=== PATIENT | male | born 1955 | race Two or more races ===

== ENCOUNTER 2025-05-18 16:05 | Inpatient (IN) | payer OTHER ==
[~2025-05-18] VITALS: Ht 162.6 cm; Wt 85.0 kg
--- NOTE | 2025-05-18 16:37 | ED.PDOC ---
SOB-HPI HPI Comments 69 year old male presents to the ED with a chief complaint of shortness of breath onset 1 week. Patient states he has been experiencing shortness of breath for the past week as well as bilateral feet swelling. PMHx COPD, HTN. Denies chest pain, dizziness, fever, chills, numbness/tingling, weakness. No other symptoms or modifying factors present at this time. Chief Complaint: Shortness of Breath Time Seen by MD: 16:25 Reviewed notes: Medications, Allergies Information Source: Patient Mode of Arrival: Ambulatory Severity: Moderate Timing: Months Duration: Since onset Context: At Rest PE Risk Factors: None History of: COPD Prehospital treatment: None Modifying Factors: Nothing Associated Signs and Symptoms: Leg Swelling Past Medical History PAST MEDICAL HISTORY: COPD, HTN Surgical History: Denies all surgeries Family History Family History: Reviewed,noncontributory to illness, No family hx of Cancer, No family hx of DM, No family hx of Heart lonny, No family hx of HTN, No family hx ofKidney lonny, No family hx of Liver lonny, No family hx of Lung lonny, No family hx of Stroke Social History Smoker: Non-Smoker Alcohol: Denies ETOH Use Drugs: Denies Drug Use Lives In: Home Constitutional: denies: chills, diaphoresis, fatigue, fever, malaise, sweats, weakness, others EENTM: denies: blurred vision, double vision, ear bleeding, ear discharge, ear drainage, ear pain, ear ringing, eye pain, eye redness, hearing loss, mouth pain, mouth swelling, nasal discharge, nose bleeding, nose congestion, nose pain, photophobia, tearing, throat pain, throat swelling, voice changes, others Respiratory: reports: shortness of breath; denies: cough, hemoptysis, orthopnea, SOB at rest, SOB with excertion, stridor, wheezing, others Cardiovascular: denies: chest pain, dizzy spells, diaphoresis, Dyspnea on exertion, edema, irregular heart beat, left arm pain, lightheadedness, palpitations, PND, syncope, others Gastrointestinal: denies: abdomen distended, abdominal pain, blood streaked bowels, constipated, diarrhea, dysphagia, difficulty swallowing, hematemesis, melena, nausea, poor appetite, poor fluid intake, rectal bleeding, rectal pain, vomiting, others Genitourinary: denies: burning, dysuria, flank pain, frequency, hematuria, incontinence, penile discharge, penile sore, pain, testicle pain, testicle swelling, urgency, others Neurological: denies: dizziness, fainting, headache, left sided numbness, left sided weakness, numbness, paresthesia, pre-existing deficit, right sided numbnes s, right sided weakness, seizure, speech problems, tingling, tremors, weakness, others Musculoskeletal: reports: others (bilateral feet swelling); denies: back pain, gout, joint pain, joint swelling, muscle pain, muscle stiffness, neck pain Integumetry: denies: bruises, change in color, change in hair/nails, dryness, laceration, lesions, lumps, rash, wounds, others Allergic/Immunocompromised: denies: Difficulty Healing, Frequent Infections, Hives, Itching, others Hematologic/Lymphatic: denies: anemia, blood clots, easy bleeding, easy bruising, swollen glands, others Endocrine: denies: excessive hunger, excessive sweating, excessive thirst, excessive urination, flushing, intolerance to cold, intolerance to heat, unexplained weight gain, unexplained weight loss, others Psychiatric: denies: anxiety, bipolar disorder, depression, hopeless, panic disorder, schizophrenia, sleepless, suicidal, others All Other Systems: Reviewed and Negative Physical Exam General Appearance: Moderate Distress, Normal HEENT: Normal ENT Inspection, Pharynx Normal, TMs Normal Neck: Full Range of Motion, Non-Tender, Normal, Normal Inspection Respiratory: Accessory Muscle Use, Chest Non-Tender, Respiratory Distress, Other (Coarse breath sounds) Cardiovascular: No Edema, No JVD, No Murmur, No Gallop, Normal Peripheral Pulses, Regular Rate/Rhythm Breast Exam: Deferred Gastrointestinal: No Organomegaly, Non Tender, No Pulsatile Mass, Normal Bowel Sounds, Soft Genitalia: Deferred Pelvic: Deferred Rectal: Deferred Extremities: No calf tenderness, Normal capillary refill, Non-tender, No pedal edema, Swelling (Bilateral lower extremity) Musculoskeletal : Apperance: Normal Neurologic: Alert, refund specialist II-XII nml as Tested, No Motor Deficits, Normal Affect, Normal Mood, No Sensory Deficits Cerebellar Function: NOT DONE Reflexes: NOT DONE Skin: Dry, Normal Color, Warm Peripheral Pulses: 3+ Radial (R), 3+ Radial (L) Lymphatic: No Adenopathy Was a procedure done? Was a procedure done?: No Differential Dx Differential Diagnosis: Anxiety, Asthma, Bronchitis, CHF, COPD X-Ray, Labs, Meds, VS Vital Signs Date Time Temp Pulse Resp B/P (MAP) Pulse Ox O2 Delivery O2 Flow Rate FiO2 05/18/25 16:11 96 05/18/25 16:10 97.6 95 20 150/95 98 97.6 Patient alert. Complaining of shortness a breath. Bilateral lower extremity swelling. Vitals stable. Was given Lasix. Was given steroid. He continues to smoke cigarettes. Counseled patient on effects of smoking cigarettes for 15 minutes. Explained to the patient. Continue monitoring. Time of 1ST Reevaluation: 16:55 Reevaluation 1ST: Unchanged Patient Education/Counseling: Diagnosis, Treatment, Prognosis Family Education/Counseling: Diagnosis, Treatment, Prognosis SEPSIS Sepsis Screen Date sepsis recognized/suspect: May 18, 2025 Time Sepsis recognized/suspect: 1610 Recent Procedure: No On Antibiotic Therapy: No Respiratory Rate >20: No Heart Rate >90: Yes Temp<36 C (96.8 F) or >38.3 C: No SBP <90 or MAP <65 mmHG: No New Acute Mental Status Change: No Is the patient on CPAP, BIPAP,: No Physician Orders Troponin-I Hs (05/18/25 16:29) Complete Blood Count (05/18/25 16:29) Comprehensive Metabolic Panel (05/18/25 16:29) B-Type Natriuretic Peptide (05/18/25 16:29) Chest Portable (05/18/25 16:29) Urinalysis (05/18/25 16:29) Troponin-I Hs (05/18/25 17:29) Troponin-I Hs (05/18/25 19:29) Electrocardigram (05/18/25 16:30) Magnesium Sulfate 1gm/100ml (05/18/25 16:30) Vital Signs Date Time Temp Pulse Resp B/P (MAP) Pulse Ox O2 Delivery O2 Flow Rate FiO2 05/18/25 16:11 96 05/18/25 16:10 97.6 95 20 150/95 98 97.6 Departure 1 Departure Time of Disposition: 16:40 Impression: Primary Impression: CHF (congestive heart failure) Qualified Codes: I50.43 - Acute on chronic combined systolic (congestive) and diastolic (congestive) heart failure Disposition: ADMITTED INPATIENT Admit to: Med Surg Condition: Guarded Critical Care Note Critical Care Time?: Yes (90 min-critical care time only) Stability Stability form required: No Heart Score Heart Score: Heart Score Response (Comments) Value History Slightly Suspicious 0 EKG Normal 0 Age >65 2 Risk Factors >3 or Hx ASHD 2 Troponin Normal limit 0 Total 4 I personally scribed for KATHARINE LOZA MD ([email or web address]) on 05/18/25 at 16:37. Electronically submitted by Lisa Saldana ([email or web address]). KATHARINE LOZA MD May 18, 2025 16:37
[2025-05-18] MEDS: IPRATROPIUM BROM 0.5 MG/2.5ML INH SOL NEB ONE (16:44)
[2025-05-18] MEDS: ALBUTEROL SULF 2.5 MG/0.5ML(0.5%) NEB SOLN NEB ONE (16:44)
[2025-05-18] MEDS: methylPREDNISolone SOD SUCC 125 MG/2 ML VL IV ONE (17:10)
[2025-05-18] MEDS: FUROSEMIDE 40 MG/4 ML VIAL IV ONE (17:10)
[2025-05-18 17:14] LABS: Hematocrit 46.4 % (41.0-53.0); Hemoglobin 15.6 g/dL (13.5-17.5); Mean Corpuscular Hemoglobin 31.4 pg (28.0-32.0); Mean Corpuscular Volume 93.7 fL (80.0-100.0); Nucleated Red Blood Cells % 0.1 %
[2025-05-18] MEDS: MAGNESIUM SULFATE 1GM/100ML 100 ML IV ONE (17:15)
[2025-05-18 17:38] LABS: Alanine Aminotransferase 24 U/L (7-40); Albumin 3.9 g/dL (3.2-4.8); Alkaline Phosphatase 128 U/L (46-116); Anion Gap 6 (5-15); BUN/Creatinine Ratio 12.4 (10.0-20.0); Bilirubin, Total 1.4 mg/dL (0.2-1.0); Blood Urea Nitrogen 15 mg/dL (9-23); Calcium 8.6 mg/dL (8.7-10.4); Carbon Dioxide 32 mmol/L (20-31); Chloride 98 mmol/L (98-107); Glucose 105 mg/dL (74-106); Potassium 4.4 mmol/L (3.5-5.1); Sodium 136 mmol/L (136-145); Total Protein 7.1 g/dL (5.7-8.2)
--- NOTE | 2025-05-18 17:58 | DVH ---
CHEST RADIOGRAPH REASON FOR EXAM: Shortness of breath COMPARISON: None TECHNIQUE: One view of the chest is provided FINDINGS: The cardiomediastinal silhouette is enlarged. There is diffuse interstitial prominence and confluence airspace disease at the lung bases. There is small right pleural effusion. There is no pn eumothorax. No acute osseous abnormality is identified. IMPRESSION: Cardiomegaly. Pulmonary edema. Small right pleural effusion.
[2025-05-18] MEDS ORDERED: NITROGLYCERIN 0.4 MG SL TAB SL PRN (19:45)
[2025-05-18] MEDS ORDERED: MORPHINE SULFATE INJ 2 MG/ml SYRG IV PRN (19:45)
[2025-05-18] MEDS ORDERED: ONDANSETRON HCL 4 MG/2 ML VIAL IV PRN (19:45)
[2025-05-18] MEDS ORDERED: ACETAMINOPHEN 325 MG TAB PO PRN (19:45)
[2025-05-18 20:01] VITALS: BP 127/82; PULSE 92; RESP 22; TEMP 97.6; O2SAT 95
[2025-05-18 20:07] LABS: Urine Protein, UAD Negative (Negative)
[2025-05-18 20:45] VITALS: PULSE 90; RESP 25; O2SAT 93
--- NOTE | 2025-05-18 21:47 | DVHHP2 ---
History of Present Illness Reason for Visit: Shortness for breath History of Present Illness 69-year-old male presents for evaluation of shortness for breath. Patient endorses a one-week history of worsening shortness for breath with associated chest pressure and bilateral lower extremity swelling. Denies history of congestive heart failure. Denies cough or fever. No other acute complaints reported. Past Medical History Hypertension COPD Past Surgical History Denies Family History Noncontributory Smoke: No ALCOHOL: none Drugs: None Review of Systems Review of Systems Review of systems are currently negative otherwise addressed in HPI. Allergies: Coded Allergies: NO KNOWN ALLERGIES (Unverified , 05/18/25) Medications Current Medications Medications Dose Ordered Sig/Zahra Route Start Time Stop Time Status Last Admin Dose Admin Furosemide 40 mg DAILY IV 05/19/25 10:00 Aspirin 81 mg DAILY PO 05/19/25 10:00 Atorvastatin Calcium 10 mg HS PO 05/18/25 22:00 Albuterol 2.5 mg Q6HPRN PRN NEB 05/18/25 19:45 Ondansetron HCl 4 mg Q4HP PRN IV 05/18/25 19:45 Acetaminophen 650 mg Q6HP PRN PO 05/18/25 19:45 Nitroglycerin 0.4 mg Q5MINP PRN SL 05/18/25 19:45 Morphine Sulfate 2 mg Q30M PRN IV 05/18/25 19:45 Exam Vital Signs Vital Signs Date Time Temp Pulse Resp B/P (MAP) Pulse Ox O2 Delivery O2 Flow Rate FiO2 05/18/25 20:45 90 25 93 Nasal Cannula* 2 28 05/18/25 20:01 97.6 127/82 97.6 Exam Gen: 69-year-old male in mild distress Skin: Warm, dry, normal color and texture, no rash. HEENT: Normocephalic atraumatic, mucous membranes moist and pink. Neck: Cervical and supraclavicular nodes normal without enlargement, trachea is midline, thyroid gland is normal without masses. Pulmonary: Clear to auscultation and percussion bilaterally. Cardiac: Regular rate and rhythm. No murmur Abdomen: Soft, nontender, nondistended, bowel sounds present all 4 quadrants, no guarding, no rigidity, no organomegaly. Extremities: No cyanosis, clubbing, plus one bilateral lower extremity edema Neuro: Cranial nerves II through XII grossly intact, normal affect and speech, no focal motor deficits. Labs/Xrays Labs Test 05/18/25 19:36 05/18/25 19:20 05/18/25 16:55 Range/Units Troponin I High Sensitivity 42 </=54 ng/L Urine Color Light-yellow Yellow Urine Clarity Clear Clear Urine pH 5.0 5.0-9.0 Urine Specific [place] 1.006 1.001-1.035 Urine Protein Negative Negative Urine Ketones Negative Negative Urine Blood Negative Negative /uL Urine Nitrite Negative Negative Urine Bilirubin Negative Negative Urine Urobilinogen Normal Negative mg/dL Urine Leukocyte Esterase Negative Negative /uL Urine RBC 1 0 - 3 /hpf Urine Microscopic WBC < 1 0-3 /HPF Urine Squamous Epithelial Cells None seen <5 /hpf Urine Bacteria None seen None Seen /hpf Urine Glucose Normal Normal mg/dL White Blood Count 8.9 4.4-10.8 10^3/uL Red Blood Count 4.96 4.5-5.90 10^6/uL Hemoglobin 15.6 13.5-17.5 g/dL Hematocrit 46.4 41.0-53.0 % Mean Corpuscular Volume 93.7 80.0-100.0 fL Mean Corpuscular Hemoglobin 31.4 28.0-32.0 pg Mean Corpuscular Hemoglobin Concent 33.5 32.0-36.0 g/dL Red Cell Distribution Width 15.0 H 11.8-14.3 % Platelet Count 176 140-450 10^3/uL Mean Platelet Volume 8.5 6.9-10.8 fL Neutrophils (%) (Auto) 82.5 H 37.0-80.0 % Lymphocytes (%) (Auto) 7.1 L 10.0-50.0 % Monocytes (%) (Auto) 9.5 0.0-12.0 % Eosinophils (%) (Auto) 0.6 0.0-7.0 % Basophils (%) (Auto) 0.3 0.0-2.0 % Neutrophils # (Auto) 7.3 1.6-8.6 10 ^3/uL Lymphocytes # (Auto) 0.6 0.4-5.4 10 ^3/uL Monocytes # (Auto) 0.8 0-1.3 10 ^3/uL Eosinophils # (Auto) 0.1 0-0.8 10 ^3/uL Basophils # (Auto) 0 0-0.2 10 ^3/uL Nucleated Red Blood Cells 0.1 % D-Dimer, Quantitative 1.27 H 0.0-0.49 mg/L FEU Sodium Level 136 136-145 mmol/L Potassium Level 4.4 3.5-5.1 mmol/L Chloride Level 98 98-107 mmol/L Carbon Dioxide Level 32 H 20-31 mmol/L Anion Gap 6 5-15 Blood Urea Nitrogen 15 9-23 mg/dL Creatinine 1.21 0.700-1.30 mg/dL Glomerular Filtration Rate Calc 65 >90 mL/min BUN/Creatinine Ratio 12.4 10.0-20.0 Serum Glucose 105 74-106 mg/dL Calcium Level 8.6 L 8.7-10.4 mg/dL Total Bilirubin 1.4 H 0.2-1.0 mg/dL Aspartate Amino Transferase (AST) 33 13-40 U/L Alanine Aminotransferase (ALT) 24 7-40 U/L Alkaline Phosphatase 128 H 46-116 U/L B-Type Natriuretic Peptide 1236.54 0-100 pg/mL Total Protein 7.1 5.7-8.2 g/dL Albumin 3.9 3.2-4.8 g/dL SEPSIS Sepsis Screen Date sepsis recognized/suspect: May 18, 2025 Time Sepsis recognized/suspect: 1849 Recent Procedure: No On Antibiotic Therapy: No Respiratory Rate >20: Yes Heart Rate >90: No Temp<36 C (96.8 F) or >38.3 C: No SBP <90 or MAP <65 mmHG: No New Acute Mental Status Change: No Is the patient on CPAP, BIPAP,: No Physician Orders Chest Portable (05/18/25 16:29) Electrocardigram (05/18/25 16:30) Furosemide Injection (Lasix Injection) (05/19/25 10:00) Aspirin Tablet (05/19/25 10:00) Atorvastatin (Lipitor) (05/18/25 22:00) Albuterol Medneb (Ventolin Medneb) (05/18/25 19:45) Basic Metabolic Panel (05/19/25 04:00) Cardiac Diet-2gna,Lofat,Lochol (05/19/25 Breakfast) Echo 2d Mode Cardiac Dop (05/18/25 19:41) Condition: Stable (05/18/25 19:41) Acetaminophen Tablet (Tylenol Tablet) (05/18/25 19:45) Bedrest With Bathroom Privileg (05/18/25 19:41) Nitroglycerin Sublingual (Ntrostat Subli (05/18/25 19:45) Morphine Sulfate Injection (05/18/25 19:45) Stat Ekg For Chest Pain (05/18/25 19:41) Notify Md Of Changes From Base (05/18/25 19:41) Director Search Marketing Strategies For 24 Hours (05/18/25 19:41) Emergency Dysrhythmia Protocol (05/18/25 19:41) Rhythm Strips Once Every Shift (05/18/25 19:41) Oxygen By Nasal Cannula (05/18/25 19:41) Admit (05/18/25 19:41) Ondansetron Hcl (Zofran) (05/18/25 19:45) Ct Angio Chest Contrast (05/18/25 21:43) Vital Signs Date Time Temp Pulse Resp B/P (MAP) Pulse Ox O2 Delivery O2 Flow Rate FiO2 05/18/25 20:45 90 25 93 Nasal Cannula* 2 28 05/18/25 20:01 95 2.0 05/18/25 20:01 95 Nasal Cannula* 2 28 05/18/25 20:01 97.6 92 22 127/82 95 2.0 28 97.6 05/18/25 19:35 92 22 127/82 (97) 92 05/18/25 18:44 Nasal Cannula* 2 28 05/18/25 17:10 135/86 05/18/25 16:45 99 22 112/56 (74) 99 05/18/25 16:44 18 98 Nasal Cannula* 3 32 05/18/25 16:11 96 05/18/25 16:10 97.6 95 20 150/95 98 97.6 Laboratory Tests Test 05/18/25 16:55 White Blood Count 8.9 10^3/uL (4.4-10.8) Medications Medications Dose Ordered Sig/Zahra Route Start Time Stop Time Status Last Admin Dose Admin Albuterol 5 mg ONCE ONCE NEB 05/18/25 16:30 05/18/25 16:31 DC 05/18/25 16:44 5 MG Furosemide 40 mg ONCE ONCE IV 05/18/25 16:30 05/18/25 16:31 DC 05/18/25 17:10 40 MG Ipratropium [place] 0.5 mg ONCE ONCE NEB 05/18/25 16:30 05/18/25 16:31 DC 05/18/25 16:44 0.5 MG Magnesium Sulfate/ Dextrose 100 ml @ 100 mls/hr ONCE ONCE IV 05/18/25 16:30 05/18/25 17:29 DC 05/18/25 17:15 100 MLS/HR Methylprednisolone Sodium Succinate 125 mg ONCE ONCE IV 05/18/25 16:30 05/18/25 16:31 DC 05/18/25 17:10 125 MG Assessment/Plan Assessment/Plan Assessment Acute heart failure Hypertension COPD Elevated D-dimer Plan Admit the patient to telemetry to the hospitalist Echocardiogram pending Resume home medications IV Lasix Continue treatment per orders. Plan discussed with: Patient My Orders Orders - TRISTEN MCCONNELL AGACNP Procedure Category Date Status Time Furosemide Injection PHA 05/19/25 In Process (Lasix Injection) 10:00 Aspirin Tablet PHA 05/19/25 In Process 10:00 Atorvastatin (Lipitor) PHA 05/18/25 In Process 22:00 Albuterol Medneb PHA 05/18/25 In Process (Ventolin Medneb) 19:45 Basic Metabolic Panel LAB 05/19/25 Verified 04:00 Cardiac DIET 05/19/25 Transmitted Diet-2gna,Lofat,Lochol Breakfast Echo 2d Mode Cardiac US 05/18/25 Logged DOP 19:41 Condition: Stable [place] 05/18/25 In Process 19:41 Acetaminophen Tablet PHA 05/18/25 In Process (Tylenol Tablet) 19:45 Bedrest With Bathroom [place] 05/18/25 In Process Privileg 19:41 Nitroglycerin PHA 05/18/25 In Process Sublingual (Ntrostat 19:45 Morphine Sulfate PHA 05/18/25 In Process Injection 19:45 Stat Ekg For Chest [facility] 05/18/25 In Process Pain 19:41 Notify Of Changes [facility] 05/18/25 In Process From Base 19:41 Director Search Marketing Strategies For [facility] 05/18/25 In Process 24 Hours 19:41 Emergency Dysrhythmia [facility] 05/18/25 In Process Protocol 19:41 Rhythm Strips Once [facility] 05/18/25 In Process Every Shift 19:41 Oxygen By Nasal RT 05/18/25 Transmitted Cannula 19:41 Admit ADMIT 05/18/25 Verified 19:41 Ondansetron Hcl PHA 05/18/25 In Process (Zofran) 19:[address] 05/18/25 Transmitted Contrast 21:43 Date of Service: May 18, 2025 Billing Provider: TRISTEN MCCONNELL Common Visit Codes: [id number] INP/OBS CARE (HIGH) TRISTEN MCCONNELL May 18, 2025 21:47
[2025-05-18 21:59] VITALS: BP 119/84; PULSE 65; PULSE 94; RESP 19; TEMP 97.4; O2SAT 92
[2025-05-18] MEDS: ATORVASTATIN 20 MG TAB PO SCH (22:07)
[2025-05-18 23:00] VITALS: BP 119/84; PULSE 94; RESP 19; TEMP 97.4; O2SAT 92
[2025-05-19] VITALS (12 sets, daily range): BP systolic 120–156; BP diastolic 78–95; PULSE 74–102; RESP 16–26; TEMP 97.1–98.5; O2SAT 89–100
--- NOTE | 2025-05-19 02:00 | DVH ---
CTA Chest with intravenous contrast INDICATION: r/o pe COMPARISON: None TECHNIQUE: Multidetector spiral CTA of the chest was performed of the chest with intravenous contrast . PULMONARY ANGIOGRAPHY PROTOCOL was utilized using a bolus-tracking technique centered on the main p ulmonary artery. Axial, coronal and sagittal multiplanar and MIP reformats were performed. Radiation Dose : 1. Chest: CTDI volume is 29.6 mGy. Dose-length product is 801.54 mGy*cm The dose indicators for CT are the volume Computed Tomography (CT) Dose Index (CTDIvol) and the Dose Length Product (DLP), and are measured in units of mGy and mGy-cm, respectively. These indicators are not patient dose, but values generated from the CT scanner acquisition factors. The report includes radiation exposure data for exposures received during this examination. Findings: Pulmonary artery: Nonocclusive filling defect within the distal right main pulmonary artery extending into the lobar br anches of the middle and lower lobes adherent to the bowers having an appearance of probable chronic p ulmonary embolus. Lower neck: Normal thyroid. Lungs: Trace bilateral pleural effusions and diffuse parenchymal architectural changes consistent wit h advanced paraseptal pulmonary emphysema. Moderate bibasilar atelectasis and minor bilateral lower l obe consolidation. Heart/Vascular Structures: Enlarged with small pericardial effusion. Atherosclerotic vascular calcifi cations. Lymph Nodes: No adenopathy Musculoskeletal: No acute osseous abnormality. Soft tissues: Normal. Multiple venous collaterals noted within the bilateral axilla as well as within the upper abdomen. Upper abdomen: Cirrhotic hepatic morphology. IMPRESSION: 1. Nonocclusive filling defect within the distal right main pulmonary artery extending into the lobar branches of the middle and lower lobes adherent to the bowers having an appearance of likely chronic pulmonary embolus. 2. Trace bilateral pleural effusions and diffuse parenchymal architectural changes consistent with ad vanced paraseptal pulmonary emphysema. 3. Moderate bibasilar atelectasis and minor bilateral lower lobe consolidation. 4. Enlarged heart with small pericardial effusion. 5. Multiple venous collaterals noted within the bilateral axilla as well as within the upper abdomen. 6. Cirrhotic hepatic morphology. Critical Result: Pulmonary embolus. Findings discussed with Dr. PEREIRA at 05/19/2025 01:52 AM, and acknowledged receipt and understandin g of the findings.
[2025-05-19 07:25] LABS: Potassium 4.4 mmol/L (3.5-5.1)
[2025-05-19 07:26] LABS: Anion Gap 7 (5-15)
[2025-05-19 07:32] LABS: BUN/Creatinine Ratio 10.4 (10.0-20.0); Blood Urea Nitrogen 12 mg/dL (9-23)
[2025-05-19 07:36] LABS: Calcium 8.1 mg/dL (8.7-10.4); Carbon Dioxide 33 mmol/L (20-31); Chloride 96 mmol/L (98-107); Glucose 152 mg/dL (74-106); Sodium 136 mmol/L (136-145)
[2025-05-19 07:48] LABS: INR 1.24 (0.9-1.15); Partial Thromboplastin Time 30.3 SEC (24.5-34.5); Prothrombin Time 12.9 sec (9.3-11.8)
[2025-05-19] MEDS: ALBUTEROL SULF 2.5 MG/0.5ML(0.5%) NEB SOLN NEB PRN (09:31)
[2025-05-19] MEDS: APIXABAN 5 MG TAB PO SCH (09:52)
[2025-05-19] MEDS: FUROSEMIDE 40 MG/4 ML VIAL IV SCH (09:53)
--- NOTE | 2025-05-19 10:09 | DVH ---
Bilateral lower extremity venous duplex Clinical History: edema Comparison: None Findings: Duplex Doppler evaluation of the deep venous systems of both lower extremities from the common femora l veins to the popliteal veins including color Doppler and spectral/pulsed waveform analysis was perf ormed. RIGHT SIDE: The common femoral vein demonstrates appropriate compressibility and waveform variability. There is compressibility/patency of the great saphenous vein at the proximal thigh. The femoral vein demonstrates appropriate compressibility and waveform variability. The deep femoral vein demonstrates appropriate compressibility and waveform variability. The popliteal vein demonstrates appropriate compressibility and waveform variability. There is normal compressibility at the tibioperoneal trunk. LEFT SIDE: The common femoral vein demonstrates appropriate compressibility and waveform variability. There is compressibility/patency of the great saphenous vein at the proximal thigh. The femoral vein demonstrates appropriate compressibility and waveform variability. The deep femoral vein demonstrates appropriate compressibility and waveform variability. The popliteal vein demonstrates appropriate compressibility and waveform variability. There is normal compressibility at the tibioperoneal trunk. IMPRESSION: No right or left femoropopliteal venous thrombosis. If clinical concern/symptoms persist or worsen, short-interval follow-up study is suggested. END IMPRESSION:
--- NOTE | 2025-05-19 12:32 | DVHPN2 ---
Reviewed: Care Plan, H&P, Labs, Medications, Previous Orders, Radiology Changes from previous H/P or p: No Changes Objective Vitals Vital Signs Date Time Temp Pulse Resp B/P (MAP) Pulse Ox O2 Delivery O2 Flow Rate FiO2 05/19/25 09:53 135/82 05/19/25 09:31 92 Nasal Cannula* 4 36 05/19/25 09:31 91 22 05/19/25 08:39 98.5 98.5 Intake/Output Intake and Output 05/19/25 07:00 Intake Total 300 ml Output Total 650 ml Balance -350 ml Intake Oral 200 ml IV Total 100 ml Output Urine Total 650 ml Medications Current Medications Medications Dose Ordered Sig/Zahra Route Start Time Stop Time Status Last Admin Dose Admin Furosemide 40 mg DAILY IV 05/19/25 10:00 05/19/25 09:53 40 MG Aspirin 81 mg DAILY PO 05/19/25 10:00 05/19/25 09:52 81 MG Atorvastatin Calcium 10 mg HS PO 05/18/25 22:00 05/18/25 22:07 10 MG Albuterol 2.5 mg Q6HPRN PRN NEB 05/18/25 19:45 05/19/25 09:31 2.5 MG Ondansetron HCl 4 mg Q4HP PRN IV 05/18/25 19:45 Acetaminophen 650 mg Q6HP PRN PO 05/18/25 19:45 Nitroglycerin 0.4 mg Q5MINP PRN SL 05/18/25 19:45 Morphine Sulfate 2 mg Q30M PRN IV 05/18/25 19:45 Apixaban 5 mg BID PO 05/19/25 10:00 05/19/25 09:52 5 MG Laboratory Results Laboratory Tests 05/18/25 16:55 05/19/25 06:15 Chemistry Test 05/18/25 16:55 05/19/25 06:15 Albumin 3.9 g/dL (3.2-4.8) Calcium Level 8.6 mg/dL (8.7-10.4) L 8.1 mg/dL (8.7-10.4) L Total Protein 7.1 g/dL (5.7-8.2) Coagulation Test 05/18/25 16:55 05/19/25 06:15 D-Dimer, Quantitative 1.27 mg/L FEU (0.0-0.49) H Prothrombin Time 12.9 sec (9.3-11.8) H Prothrombin Time INR 1.24 (0.9-1.15) H Activated Partial Thromboplast Time 30.3 SEC (24.5-34.5) Cardiac Markers Test 05/18/25 16:55 B-Type Natriuretic Peptide 1236.54 pg/mL (0-100) LFT Test 05/18/25 16:55 Alanine Aminotransferase (ALT) 24 U/L (7-40) Alkaline Phosphatase 128 U/L (46-116) H Aspartate Amino Transferase (AST) 33 U/L (13-40) Total Bilirubin 1.4 mg/dL (0.2-1.0) H Urinalysis Test 05/18/25 19:20 Urine Color Light-yellow (Yellow) Urine Clarity Clear (Clear) Urine pH 5.0 (5.0-9.0) Urine Specific [place] 1.006 (1.001-1.035) Urine Protein Negative (Negative) Urine Ketones Negative (Negative) Urine Blood Negative /uL (Negative) Urine Nitrite Negative (Negative) Urine Bilirubin Negative (Negative) Urine Urobilinogen Normal mg/dL (Negative) Urine Leukocyte Esterase Negative /uL (Negative) Urine RBC 1 /hpf (0 - 3) Urine Microscopic WBC < 1 /HPF (0-3) Urine Squamous Epithelial Cells None seen /hpf (<5) Urine Bacteria None seen /hpf (None Seen) Urine Glucose Normal mg/dL (Normal) Labs and/or images reviewed: Labs reviewed by me, Image(s) reviewed by me Assessment/Plan Assessment/Plan Acute hypoxic respiratory failure: Oxygen by nasal cannula New onset congestive heart failure BNP 1236: Lasix echocardiogram result pending cardiology consult for Dr. Forde Chronic right PE: On Eliquis Bilateral lower lobe pneumonia: Rocephin azithromycin albuterol Atrovent Elevated D-dimer 1.27 DVT ruled out Hypertension Acute COPD exacerbation Time spent 70 minutes Advanced care planning time 20 minutes Patient is full code Plan discussed with: Patient My Orders Orders - SHALONDA BRAGG MD Procedure Category Date Status Time * Cardiology Consult CONS 05/19/25 Transmitted 12:27 Ceftriaxone Ivpb PHA 05/20/25 Verified Rocephin 09:00 Ceftriaxone Ivpb PHA 05/19/25 Verified Rocephin 12:30 Azithromycin 500mg/ PHA 05/20/25 Verified 250ml (Zithromax 50 10:00 Azithromycin 500mg/ PHA 05/19/25 Verified 250ml (Zithromax 50 12:30 Date of Service: May 19, 2025 Billing Provider: SHALONDA BRAGG MD Common Visit Codes: [id number] CARE 30-74 MIN SHALONDA BRAGG MD May 19, 2025 12:32
--- NOTE | 2025-05-19 13:17 | DVHSR ---
APPROVED REPORT EXAM: Two-dimensional and M-mode echocardiogram with Doppler and color Doppler. Blood Pressure: 136/88 mmHg INDICATION EF RISK FACTORS Height: 5'4", Weight: 185 DIMENSIONS LVDd5.3 (3.8-5.7cm)LA (2D)3.9 (1.9-4.0cm)Aortic Root3.4 (2.0-3.7cm) LVDs4.7 (2.5-4.0cm)LA (MM) (1.9-4.0cm)Aortic Cusp Exc1.1 (1.5-2.0cm) EF (%) 27.0 (55-70%)Rt. Atrium6.0 (1.9-4.0cm)Asc. Aorta cm IVSd1.0 (0.7-1.1cm)RV (D) (1.8-2.4cm) PWd0.9 (0.7-1.1cm) Mitral Valve MitralMitral Stenosis E/A ratio0.02D MVAcm2 Aortic Valve Aortic ValveAortic Stenosis V10.54m/Telma Mean GR.3mmHg V21.03m/Telma Peak GR.4mmHg LVOT Diameter2.1 (1.8-2.4cm)Doppler AVA1.81cm2 Other Information Quality : Technically LimitedRhythm : Technically limited study due to body habitus. Conclusion lvef 20 % grade 1 diastolic dysfunction dilated LV moderate LVH RV dysfunction normal atria no severe valve abnormalities noted
[2025-05-19] MEDS: NICOTINE 21MG/24 HR TOPICAL PATCH TD ONE (14:28)
[2025-05-19] MEDS: AZITHROMYCIN 500MG/ 250ML 250 ML IV ONE (14:28)
--- NOTE | 2025-05-19 15:22 | DVHCONRES ---
Date Seen: May 19, 2025 Resident Creating Document: DELFINA RAMÍREZ RESIDENT Referring Physician Jonathan Arreaga MD Reason for Consultation New onset congestive heart failure, chronic right PE History of Present Illness The patient is a 69-year-old male, BMI 31.8, with past history of COPD and hypertension, no prior CHF, who presented with progressive shortness of breath for 1 week and bilateral pedal edema. He remains dyspneic with orthopnea but has shown mild symptomatic improvement with oxygen, diuretics, and initiation of heart failure therapy. Denies chest pain, palpitations, syncope, fever, or dizziness. Todays Progress Update: * Guideline-directed medical therapy (GDMT) initiated for new HFrEF (EF 20%). * Anticoagulation switched from apixaban to therapeutic enoxaparin in anticipation of invasive procedure. * Aspirin 81 mg daily and atorvastatin 40 mg nightly initiated. * Urine drug screen ordered to evaluate for toxic/drug-induced cardiomyopathy. * Left and right heart catheterization scheduled for tomorrow with Dr. Forde for ischemic evaluation and hemodynamic assessment. * Oxygen requirement stable. No chest pain overnight. Past Medical History * COPD * Hypertension * No prior documented CHF * Chronic pulmonary embolism * Cirrhotic hepatic morphology on imaging Past Surgical History * None reported Family History: Patient reports no known family medical history. Social History * Smoking history * No known alcohol/illicit drug use (UDS pending) Allergies: Coded Allergies: NO KNOWN ALLERGIES (Unverified , 05/18/25) Current Medications Current Medications Medications (Trade) Dose Ordered Sig/Zahra Route PRN Reason Start Time Stop Time Status Last Admin Furosemide (Lasix Injection) 40 mg DAILY IV 05/19/25 10:00 05/19/25 09:53 Aspirin 81 mg DAILY PO 05/19/25 10:00 05/19/25 09:52 Atorvastatin Calcium (Lipitor) 10 mg HS PO 05/18/25 22:00 05/18/25 22:07 Albuterol (Ventolin Medneb) 2.5 mg Q6HPRN PRN NEB SHORTNESS OF BREATH 05/18/25 19:45 05/19/25 09:31 Ondansetron HCl (Zofran) 4 mg Q4HP PRN IV NAUSEA / VOMITING 05/18/25 19:45 Acetaminophen (Tylenol Tablet) 650 mg Q6HP PRN PO PAIN SCALE 1-3 OR TEMP>100.4 05/18/25 19:45 Nitroglycerin (Ntrostat Sublingual) 0.4 mg Q5MINP PRN SL FOR CHEST PAIN 05/18/25 19:45 Morphine Sulfate 2 mg Q30M PRN IV FOR CHEST PAIN 05/18/25 19:45 Apixaban (Eliquis) 5 mg BID PO 05/19/25 10:00 05/19/25 09:52 Ceftriaxone Sodium 50 ml @ 100 mls/hr DAILY@09 IV 05/20/25 09:00 Azithromycin 250 ml @ 125 mls/hr DAILY IV 05/20/25 10:00 Nicotine (Nicoderm 21MG/ 24HR) 1 patch DAILY TD 05/20/25 10:00 Review of Systems * General: Fatigue, exertional dyspnea. No fever. * Cardiac: Orthopnea, edema. No chest pain, palpitations. * Respiratory: Dyspnea, mild cough. No hemoptysis. * GI/Neuro: No bleeding, no focal deficits. Vital Signs Vital Signs Date Time Temp Pulse Resp B/P (MAP) Pulse Ox O2 Delivery O2 Flow Rate FiO2 05/19/25 12:47 97.4 74 16 140/95 (110) 98 97.4 05/19/25 09:31 Nasal Cannula* 4 36 Physical Exam * General: Mild distress on O?, speaking in short sentences. * Vitals: HR 92, BP 132/78, RR 22, SpO? 91% on 3L NC, afebrile. * Neck: JVD present. * Cardiac: S3 present, displaced PMI, regular rhythm. * Lungs: Bibasilar crackles, mild wheezing. * Abdomen: Soft, mildly distended. * Extremities: 2+ pedal edema. * Neuro: Alert, oriented. Labs/Diagnostic Data Labs Test 05/19/25 06:15 05/18/25 19:36 05/18/25 19:20 05/18/25 16:55 Range/Units Prothrombin Time 12.9 H 9.3-11.8 sec Prothrombin Time INR 1.24 H 0.9-1.15 Activated Partial Thromboplast Time 30.3 24.5-34.5 SEC Sodium Level 136 136-145 mmol/L Potassium Level 4.4 3.5-5.1 mmol/L Chloride Level 96 L 98-107 mmol/L Carbon Dioxide Level 33 H 20-31 mmol/L Anion Gap 7 5-15 Blood Urea Nitrogen 12 9-23 mg/dL Creatinine 1.15 0.700-1.30 mg/dL Glomerular Filtration Rate Calc 69 >90 mL/min BUN/Creatinine Ratio 10.4 10.0-20.0 Serum Glucose 152 H 74-106 mg/dL Calcium Level 8.1 L 8.7-10.4 mg/dL Troponin I High Sensitivity 42 </=54 ng/L Urine Color Light-yellow Yellow Urine Clarity Clear Clear Urine pH 5.0 5.0-9.0 Urine Specific [place] 1.006 1.001-1.035 Urine Protein Negative Negative Urine Ketones Negative Negative Urine Blood Negative Negative /uL Urine Nitrite Negative Negative Urine Bilirubin Negative Negative Urine Urobilinogen Normal Negative mg/dL Urine Leukocyte Esterase Negative Negative /uL Urine RBC 1 0 - 3 /hpf Urine Microscopic WBC < 1 0-3 /HPF Urine Squamous Epithelial Cells None seen <5 /hpf Urine Bacteria None seen None Seen /hpf Urine Glucose Normal Normal mg/dL White Blood Count 8.9 4.4-10.8 10^3/uL Red Blood Count 4.96 4.5-5.90 10^6/uL Hemoglobin 15.6 13.5-17.5 g/dL Hematocrit 46.4 41.0-53.0 % Mean Corpuscular Volume 93.7 80.0-100.0 fL Mean Corpuscular Hemoglobin 31.4 28.0-32.0 pg Mean Corpuscular Hemoglobin Concent 33.5 32.0-36.0 g/dL Red Cell Distribution Width 15.0 H 11.8-14.3 % Platelet Count 176 140-450 10^3/uL Mean Platelet Volume 8.5 6.9-10.8 fL Neutrophils (%) (Auto) 82.5 H 37.0-80.0 % Lymphocytes (%) (Auto) 7.1 L 10.0-50.0 % Monocytes (%) (Auto) 9.5 0.0-12.0 % Eosinophils (%) (Auto) 0.6 0.0-7.0 % Basophils (%) (Auto) 0.3 0.0-2.0 % Neutrophils # (Auto) 7.3 1.6-8.6 10 ^3/uL Lymphocytes # (Auto) 0.6 0.4-5.4 10 ^3/uL Monocytes # (Auto) 0.8 0-1.3 10 ^3/uL Eosinophils # (Auto) 0.1 0-0.8 10 ^3/uL Basophils # (Auto) 0 0-0.2 10 ^3/uL Nucleated Red Blood Cells 0.1 % D-Dimer, Quantitative 1.27 H 0.0-0.49 mg/L FEU Total Bilirubin 1.4 H 0.2-1.0 mg/dL Aspartate Amino Transferase (AST) 33 13-40 U/L Alanine Aminotransferase (ALT) 24 7-40 U/L Alkaline Phosphatase 128 H 46-116 U/L B-Type Natriuretic Peptide 1236.54 0-100 pg/mL Total Protein 7.1 5.7-8.2 g/dL Albumin 3.9 3.2-4.8 g/dL Assessment 1. Acute decompensated systolic heart failure (HFrEF, EF 20%) new diagnosis. 2. Acute hypoxic respiratory failure multifactorial (CHF, COPD, pneumonia). 3. Chronic pulmonary embolism non-occlusive, adherent to vessel wall. 4. Possible ischemic cardiomyopathy ischemic evaluation scheduled with cath. 5. Stable troponin elevation likely demand ischemia. 6. Community-acquired pneumonia, bilateral upper lobes. 7. Acute COPD exacerbation. 8. Hypertension, uncontrolled. 9. Small pericardial effusion. 10. Obesity (BMI 31.8). 11. Cirrhosis. Plan/Recommendation Treatment Plan Cardiovascular / Heart Failure * Continue furosemide 40 mg IV OD (adjust per urine output and volume status). * Continue GDMT (initiated): * Carvedilol 3.125 mg PO BID (titrate if tolerated). * Eneresto PO daily (monitor Cr/K). * Spironolactone 12.5 mg PO daily (if K<5, Cr<2.5). * Empagliflozin 10 mg PO daily if renal function allows. * Aspirin 81 mg PO daily. * Atorvastatin 40 mg PO nightly. * Strict I/O, daily weights, fluid restriction 1.5 L/day, sodium restriction <2 g/day. * Left and right heart catheterization scheduled for tomorrow with Dr. Forde. * Urine drug screen pending. Anticoagulation * Discontinue apixaban. * Start enoxaparin 1 mg/kg SC BID (therapeutic dosing) hold prior to cath. Pulmonary / Infectious (co-management with IM/ID) * Supplemental O? to keep SpO? 8892%. Prophylaxis * GI: Pantoprazole 40 mg PO daily. * DVT: covered by therapeutic enoxaparin. Case discussed in detail with the attending physician, including the clinical presentation, diagnostic workup, and comprehensive management plan. The patient was present for the discussion and demonstrated understanding of his condition and the proposed plan. Plan discussed with: Patient Visit Coding Cardiology RES Date of Service: May 19, 2025 Billing Provider: JOHNNY FORDE Sr., MD Cardiology Common Codes: [id number] INP/OBS CARE (High) DELFINA RAMÍREZ RESIDENT May 19, 2025 15:22
[2025-05-19] MEDS: ATORVASTATIN 20 MG TAB PO SCH (21:10)
[2025-05-19] MEDS: SACUBITRIL-VALSARTAN 24mg/26mg TAB PO SCH (21:10)
[2025-05-19] MEDS: CARVEDILOL 3.125 MG TAB PO SCH (21:11)
[2025-05-19] MEDS: ENOXAPARIN SOD 100 MG/1 ML SYRINGE SC SCH (21:13)
[2025-05-20] VITALS (16 sets, daily range): BP systolic 87–147; BP diastolic 46–84; PULSE 77–98; RESP 17–26; TEMP 97–98.4; O2SAT 90–100
[2025-05-20] MEDS: AZITHROMYCIN 500MG/ 250ML 250 ML IV SCH (10:11)
[2025-05-20] MEDS: NICOTINE 21MG/24 HR TOPICAL PATCH TD SCH (10:12)
[2025-05-20] MEDS: EMPAGLIFLOZIN 10 MG TAB PO SCH (10:13)
[2025-05-20 10:46] LABS: Hematocrit 45.5 % (41.0-53.0); Hemoglobin 15.3 g/dL (13.5-17.5); Mean Corpuscular Hemoglobin 31.2 pg (28.0-32.0); Mean Corpuscular Volume 93.0 fL (80.0-100.0); Nucleated Red Blood Cells % 0.1 %
[2025-05-20 10:58] LABS: Alanine Aminotransferase 15 U/L (7-40); Alkaline Phosphatase 91 U/L (46-116); Anion Gap 7 (5-15); BUN/Creatinine Ratio 14.0 (10.0-20.0); Bilirubin, Total 0.8 mg/dL (0.2-1.0); Blood Urea Nitrogen 15 mg/dL (9-23); Potassium 3.9 mmol/L (3.5-5.1); Sodium 138 mmol/L (136-145)
[2025-05-20 11:03] LABS: Albumin 2.9 g/dL (3.2-4.8); Calcium 8.0 mg/dL (8.7-10.4); Carbon Dioxide 35 mmol/L (20-31); Chloride 96 mmol/L (98-107); Glucose 122 mg/dL (74-106); Total Protein 5.5 g/dL (5.7-8.2)
[2025-05-20 11:05] LABS: INR 1.23 (0.9-1.15); Partial Thromboplastin Time 31.1 SEC (24.5-34.5); Prothrombin Time 12.8 sec (9.3-11.8)
--- NOTE | 2025-05-20 14:17 | ECG ---
[facility] Test Date: 2025-05-18 Test Time: 16:11:30 Pat Name: NICOLE SCHMIDT Department: [facility] ED Patient ID: [facility]-[id number] Room: 0275T Gender: M Senior Research Associate: alvino : 1955 Requested By: KATHARINE LOZA Order Number: [id number] Reading MD: Orlando Forde Measurements Intervals [place] Rate: 96 P: 65 RI: 161 QRS: -61 QRSD: 83 T: 63 QT: 404 QTc: 511 Interpretive Statements Sinus rhythm Left anterior fascicular block Borderline low voltage, extremity leads Prolonged QT interval Baseline wander in lead(s) V1 Electronically Signed On 05-26-2025 18:53:08 PDT by Orlando Forde Please click the below link to view image of tracing.
[2025-05-20] MEDS: ALBUTEROL SULF 2.5 MG/0.5ML(0.5%) NEB SOLN NEB SCH (18:15)
[2025-05-20] MEDS: IODIXANOL 320MG/ML 100ML BTL IV ONE (18:27)
[2025-05-20] MEDS: fentaNYL CITRATE 100 MCG/2 ML VL ONE (18:29)
[2025-05-20] MEDS: ANGIOMAX 250 MG VIAL IV ONE (18:29)
[2025-05-20] MEDS: VERAPAMIL 2.5MG/ML INJ 2ML VIAL IV ONE (18:29)
[2025-05-20] MEDS: HEPARIN SODIUM (PORCINE) 5000 UNITS/ML 1ML VIAL ONE (18:29)
[2025-05-20] MEDS: LIDOCAINE 2%HCL (LOCAL ANESTH.) INJ 20ML MDV ONE (18:30)
[2025-05-20] MEDS: MIDAZOLAM HCL 2MG/2ML 2ml VIAL (1mg/ml) ONE (18:30)
[2025-05-20] MEDS: SODIUM CHL 0.9% 0 ML ONE (18:30)
--- NOTE | 2025-05-20 19:47 | DVHOP2 ---
Operative Report - 2 Report Details Date: 05/20/25 Preop Diagnosis: Cardiomyopathy/coronary artery disease Postop Diagnosis: Nonischemic cardiomyopathy Surgeon: Johnny Forde MD Anesthesiologist: Conscious sedation Anesthesia: Mac, Local Consent: The patient was informed of the risks and benefits of the procedure. These include but are not limited to complications of anesthesia, postoperative infection, incomplete relief of symptoms, recurrence of symptoms, damage to blood vessels, nerves and tendons, deep venous thrombosis, pulmonary embolism and possible need for repeat surgery in the future. Complications: No complications Findings: Nonischemic cardiomyopathy Indications for Surgery: Chest pain/cardiomyopathy Name of Procedure Performed Left heart catheterization. Bilateral cine coronary angiography. Left ventriculography. Procedure Details Procedure Details: Prior local anesthesia with a 2% lidocaine to the right wrist and full informed consent obtained patient was prepped and draped in the usual fashion followed by placement of a six [place] sheath into the radial artery and a JL4 cannulating the left main. A multipurpose catheter was used to cannulate the RCA and ventriculography without complications. Hemodynamics: Aortic blood pressure was 110/70. End-diastolic pressure was 12. No gradient across the aortic valve on pullback. Coronary anatomy : the RCA is a large vessel it is normal in its proximal mid and distal segments. PDA and posterolateral branches are normal. Left main is a large vessel. It is normal in its proximal portion. There was a slight bend and stenosis 30-40% in its mid section. It appears to be more associated a kink/spent within the artery. The left anterior descending coronary artery is normal. No significant stenosis present. Diagonals and septals are normal. The circumflex is large with two marginals free of significant disease. Left ventriculography was performed in the [place] projection. EF is approximately 25% with global hypokinesis. Impression: Mildly elevated left ventricular end-diastolic pressure at rest with decreased left ventricular ejection fraction. Nonischemic cardiomyopathy. No significant coronary artery disease. Recommendations: Medical therapy is warranted continue risk factor modification afterload reduction. Condition Guarded Disposition Still a Patient Date of Service: May 20, 2025 Billing Provider: JOHNNY FORDE Sr., MD Cardiology Common Codes: [id number] INP/OBS CARE (High) Cardiology Procedure Codes: [id number] HEART CATH W/INTRA INJ JOHNNY FORDE Sr., MD May 20, 2025 19:47
[2025-05-21] VITALS (22 sets, daily range): BP systolic 90–115; BP diastolic 50–72; PULSE 86–104; RESP 16–25; TEMP 98.6–99.4; O2SAT 88–99
[2025-05-21] MEDS: ALBUMIN 5% 250 ML IV ONE (04:41)
[2025-05-21] MEDS: IOHEXOL 350 MG/ML 100ML IJ ONE (07:32)
--- NOTE | 2025-05-21 07:38 | ECG ---
[facility] Test Date: 2025-05-20 Test Time: 16:30:46 Pat Name: NICOLE SCHMIDT Department: Room: 0275T Gender: M Hotel Assistant General Manager: PARTH : 1955 Requested By: JOHNNY FORDE Order Number: [id number] Reading MD: Johnny Forde Measurements Intervals [place] Rate: 94 P: 62 ND: 150 QRS: 0 QRSD: 88 T: 144 QT: 380 QTc: 475 Interpretive Statements Sinus rhythm with premature atrial complexes Low voltage QRS T wave abnormality, consider anterior ischemia Prolonged QT Electronically Signed On 05-26-2025 18:08:00 PDT by Johnny Forde Please click the below link to view image of tracing.
--- NOTE | 2025-05-21 11:57 | DVHPN2 ---
Reviewed: Care Plan, H&P, Labs, Medications, Previous Orders, Radiology Changes from previous H/P or p: No Changes Objective Vitals Vital Signs Date Time Temp Pulse Resp B/P (MAP) Pulse Ox O2 Delivery O2 Flow Rate FiO2 05/21/25 10:00 92 Nasal Cannula* 4 36 05/21/25 09:27 98 115/72 05/21/25 09:06 18 05/21/25 08:34 98.8 98.8 Intake/Output Intake and Output 05/21/25 07:00 Intake Total 1030 ml Output Total 1550 ml Balance -520 ml Intake Oral 480 ml IV Total 550 ml Output Urine Total 1550 ml # Bowel Movements 1 Medications Current Medications Medications Dose Ordered Sig/Zahra Route Start Time Stop Time Status Last Admin Dose Admin Furosemide 40 mg DAILY IV 05/19/25 10:00 05/21/25 09:15 40 MG Ondansetron HCl 4 mg Q4HP PRN IV 05/18/25 19:45 Acetaminophen 650 mg Q6HP PRN PO 05/18/25 19:45 Nitroglycerin 0.4 mg Q5MINP PRN SL 05/18/25 19:45 Morphine Sulfate 2 mg Q30M PRN IV 05/18/25 19:45 Ceftriaxone Sodium 50 ml @ 100 mls/hr DAILY@09 IV 05/20/25 09:00 05/21/25 09:14 100 MLS/HR Azithromycin 250 ml @ 125 mls/hr DAILY IV 05/20/25 10:00 Hold 05/20/25 10:11 125 MLS/HR Nicotine 1 patch DAILY TD 05/20/25 10:00 05/20/25 10:12 1 PATCH Enoxaparin Sodium 80 mg Q12HR SC 05/19/25 22:00 05/21/25 09:24 80 MG Sacubitril/ Valsartan 1 tab BID PO 05/19/25 22:00 05/21/25 09:16 1 TAB Carvedilol 3.125 mg Q12HR PO 05/19/25 22:00 05/21/25 09:27 3.125 MG Empaglifozin 10 mg DAILY PO 05/20/25 10:00 05/21/25 09:15 10 MG Aspirin 81 mg DAILY PO 05/20/25 10:00 05/21/25 09:16 81 MG Atorvastatin Calcium 40 mg HS PO 05/19/25 22:00 05/20/25 22:00 40 MG Albuterol 2.5 mg Q4HR NEB 05/20/25 18:00 05/21/25 09:00 2.5 MG Laboratory Results Laboratory Tests 05/20/25 09:50 Urinalysis Test 05/18/25 19:20 Urine Color Light-yellow (Yellow) Urine Clarity Clear (Clear) Urine pH 5.0 (5.0-9.0) Urine Specific [place] 1.006 (1.001-1.035) Urine Protein Negative (Negative) Urine Ketones Negative (Negative) Urine Blood Negative /uL (Negative) Urine Nitrite Negative (Negative) Urine Bilirubin Negative (Negative) Urine Urobilinogen Normal mg/dL (Negative) Urine Leukocyte Esterase Negative /uL (Negative) Urine RBC 1 /hpf (0 - 3) Urine Microscopic WBC < 1 /HPF (0-3) Urine Squamous Epithelial Cells None seen /hpf (<5) Urine Bacteria None seen /hpf (None Seen) Urine Glucose Normal mg/dL (Normal) Labs and/or images reviewed: Labs reviewed by me, Image(s) reviewed by me Assessment/Plan Assessment/Plan Acute hypoxic respiratory failure: Oxygen by nasal cannula New onset congestive heart failure BNP 1236: Lasix echocardiogram 20 percent ejection fraction cardiology consult for Dr. Forde Nonischemic cardiomyopathy with normal coronaries by left heart catheterization by Dr. Forde 05-21-25 Chronic right PE: On Eliquis Bilateral lower lobe pneumonia: Rocephin azithromycin albuterol Atrovent Elevated D-dimer 1.27 DVT ruled out Hypertension Acute COPD exacerbation Time spent 60 minutes Advanced care planning time 20 minutes Patient is full code Check ABG on room air to see if he qualifies for home oxygen Check urine drug screen Plan discussed with: Patient My Orders Orders - SHALONDA BRAGG MD Procedure Category Date Status Time Albuterol Medneb PHA 05/20/25 In Process (Ventolin Medneb) 18:00 Date of Service: May 21, 2025 Billing Provider: SHALONDA BRAGG MD Common Visit Codes: [id number] INP/OBS CARE(HIGH) SHALONDA BRAGG MD May 21, 2025 11:57
[2025-05-21 12:00] LABS: Amphetamine Screen, Urine Pos (NEGATIVE); Benzodiazephine Screen, Urine Pos (NEGATIVE); Cannabinoid Screen, Urine Pos (NEGATIVE)
[2025-05-21 12:01] LABS: Barbiturate Scree,Urine Neg (NEGATIVE); Opiate Scree,Urine Neg (NEGATIVE); Phencyclidine Screen, Urine Neg (NEGATIVE)
[2025-05-21 12:02] LABS: Cocaine Screen, Urine Neg (NEGATIVE)
--- NOTE | 2025-05-21 16:40 | DVHPNRES ---
Progress Note Date Seen: May 21, 2025 Resident Creating Document: DELFINA RAMÍREZ RESIDENT Has the PT tested + for MRSA If YES, has PT been informed?: No Medical Necessity Reason Pt with a Central, PICC or Fol: Yes The following are medically ne: Asencio Catheter Reason for asencio catheter: Bladder Retention/Obstruc Subjective Review of Systems Today's progress- Underwent left heart catheterization Findings-no obstructive CAD. RCA, lad, diagonals, septals, circumflex and marginal ulcer free of significant stenosis. LMCA with only 30-40% stenosis Left ventriculography-global hypokinesis, LVEF is 20%, elevated LVEDP consistent with nonischemic dilated cardiomyopathy. 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 Medical therapy and lifestyle modification warranted. ICD may be indicated after 3 months of G DMT if EF remains less than equal to 35. Objective vital signs Vital Sign Date Time Temp Pulse Resp B/P (MAP) Pulse Ox O2 Delivery O2 Flow Rate FiO2 05/21/25 16:33 98.6 94 18 113/69 (84) 94 98.6 05/21/25 13:38 Nasal Cannula 4.0 05/21/25 13:38 36 Total Intake and Output 05/20/25 05/20/25 05/21/25 15:00 23:00 07:00 Intake Total 300 ml 0 ml 730 ml Output Total 850 ml 700 ml Balance 300 ml -850 ml 30 ml medications Current Medications Medications Dose Ordered Sig/Zahra Route Start Time Stop Time Status Last Admin Dose Admin Furosemide 40 mg DAILY IV 05/19/25 10:00 05/21/25 09:15 40 MG Ondansetron HCl 4 mg Q4HP PRN IV 05/18/25 19:45 Acetaminophen 650 mg Q6HP PRN PO 05/18/25 19:45 Nitroglycerin 0.4 mg Q5MINP PRN SL 05/18/25 19:45 Morphine Sulfate 2 mg Q30M PRN IV 05/18/25 19:45 Ceftriaxone Sodium 50 ml @ 100 mls/hr DAILY@09 IV 05/20/25 09:00 05/21/25 09:14 100 MLS/HR Azithromycin 250 ml @ 125 mls/hr DAILY IV 05/20/25 10:00 Hold 05/20/25 10:11 125 MLS/HR Nicotine 1 patch DAILY TD 05/20/25 10:00 05/20/25 10:12 1 PATCH Enoxaparin Sodium 80 mg Q12HR SC 05/19/25 22:00 05/21/25 09:24 80 MG Sacubitril/ Valsartan 1 tab BID PO 05/19/25 22:00 05/21/25 09:16 1 TAB Carvedilol 3.125 mg Q12HR PO 05/19/25 22:00 05/21/25 09:27 3.125 MG Empaglifozin 10 mg DAILY PO 05/20/25 10:00 05/21/25 09:15 10 MG Aspirin 81 mg DAILY PO 05/20/25 10:00 05/21/25 09:16 81 MG Atorvastatin Calcium 40 mg HS PO 05/19/25 22:00 05/20/25 22:00 40 MG Albuterol 2.5 mg Q4HR NEB 05/20/25 18:00 05/21/25 13:38 2.5 MG Spironolactone 25 mg DAILY PO 05/22/25 10:00 UNV Examination General: Fatigue, exertional dyspnea. No fever. * Cardiac: Orthopnea, edema. No chest pain, palpitations. * Respiratory: Dyspnea, mild cough. No hemoptysis. * GI/Neuro: No bleeding, no focal deficits. laboratory and microbiology Laboratory Tests 05/20/25 09:50 Test 05/20/25 09:50 Range/Units Serum Glucose 122 H 74-106 mg/dL Problem List/Assessment/Plan Problem List/Assessment/Plan Assessment 1. Acute decompensated systolic heart failure (HFrEF, EF 20%) new diagnosis. 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 2. Acute hypoxic respiratory failure multifactorial (CHF, COPD, pneumonia). 3. Chronic pulmonary embolism non-occlusive, adherent to vessel wall. 4. Possible ischemic cardiomyopathy ischemic evaluation scheduled with cath. 5. Stable troponin elevation likely demand ischemia. 6. Community-acquired pneumonia, bilateral upper lobes. 7. Acute COPD exacerbation. 8. Hypertension, uncontrolled. 9. Small pericardial effusion. 10. Obesity (BMI 31.8). 11. Cirrhosis. Plan/Recommendation Treatment Plan Cardiovascular / Heart Failure Social service consult, for drug abuse. Counseled the patient on abstinence from drugs due to the contribution of his heart failure. Proceed with guideline directed medical therapy . Counseled on stimulants cessation Scheduled close outpatient Cardiology follow-up in 2 weeks and in 3 months. Consider ICD candidacy after more than equal to 3 months of optimize EGD empty if EF is less than equal to 35%. Anticoagulation for chronic PE to be resumed postprocedure. * Continue furosemide 40 mg IV OD (adjust per urine output and volume status). * Continue GDMT (initiated): * Carvedilol 3.125 mg PO BID (titrate if tolerated). * Eneresto PO daily (monitor Cr/K). * Spironolactone 25 mg PO daily (if K<5, Cr<2.5). * Empagliflozin 10 mg PO daily if renal function allows. * Aspirin 81 mg PO daily. * Atorvastatin 40 mg PO nightly. * Strict I/O, daily weights, fluid restriction 1.5 L/day, sodium restriction <2 g/day. * Urine drug screen pending. Anticoagulation Continue apixaban 5 mg p.o. b.i.d. Pulmonary / Infectious (co-management with IM/ID) * Supplemental O? to keep SpO? 8892%. Prophylaxis * GI: Pantoprazole 40 mg PO daily. * DVT: covered by therapeutic enoxaparin. Case discussed in detail with the attending physician, including the clinical presentation, diagnostic workup, and comprehensive management plan. The patient was present for the discussion and demonstrated understanding of his condition and the proposed plan. Plan discussed with: Patient My Orders My Orders Orders - DELFINA RAMÍREZ RESIDENT Procedure Category Date Status Time Insert Asencio Catheter CORINE 05/21/25 In Process 11:15 Spironolactone PHA 05/22/25 Logged (Aldactone) 10:00 Dietary Evaluation Review Comments: Encourage and monitor PO intakes CCHO-60 Cardiac diet Expected Outcomes/Goals: nutrition related lab value WNL, gradual wt loss Visit Coding Cardiology RES Date of Service: May 21, 2025 Billing Provider: JOHNNY RUSSO Sr., MD Cardiology Common Codes: [id number] HOSP CARE(High DELFINA RAMÍREZ RESIDENT May 21, 2025 16:40
[2025-05-21] MEDS: APIXABAN 5 MG TAB PO SCH (21:57)
[2025-05-22] VITALS (16 sets, daily range): BP systolic 87–107; BP diastolic 52–74; PULSE 78–92; RESP 17–22; TEMP 97.5–98.7; O2SAT 91–98
[2025-05-22] MEDS: SPIRONOLACTONE 25 MG TAB PO SCH (09:05)
[2025-05-22 09:21] LABS: Base Excess 10.1 mmol/L (-2.0-3.0)
--- NOTE | 2025-05-22 10:14 | DVHPN2 ---
Reviewed: Care Plan, H&P, Labs, Medications, Previous Orders, Radiology Changes from previous H/P or p: No Changes Objective Vitals Vital Signs Date Time Temp Pulse Resp B/P (MAP) Pulse Ox O2 Delivery O2 Flow Rate FiO2 05/22/25 09:44 90 19 96 05/22/25 09:38 Nasal Cannula* 3 32 05/22/25 09:04 102/64 05/22/25 05:00 97.5 97.5 Intake/Output Intake and Output 05/22/25 07:00 Intake Total 1580 ml Output Total 2450 ml Balance -870 ml Intake Oral 1580 ml Output Urine Total 2450 ml # Bowel Movements 2 Medications Current Medications Medications Dose Ordered Sig/Zahra Route Start Time Stop Time Status Last Admin Dose Admin Furosemide 40 mg DAILY IV 05/19/25 10:00 05/22/25 09:03 40 MG Ondansetron HCl 4 mg Q4HP PRN IV 05/18/25 19:45 Acetaminophen 650 mg Q6HP PRN PO 05/18/25 19:45 Nitroglycerin 0.4 mg Q5MINP PRN SL 05/18/25 19:45 Morphine Sulfate 2 mg Q30M PRN IV 05/18/25 19:45 Ceftriaxone Sodium 50 ml @ 100 mls/hr DAILY@09 IV 05/20/25 09:00 05/22/25 09:01 100 MLS/HR Azithromycin 250 ml @ 125 mls/hr DAILY IV 05/20/25 10:00 Hold 05/20/25 10:11 125 MLS/HR Nicotine 1 patch DAILY TD 05/20/25 10:00 05/22/25 09:04 1 PATCH Sacubitril/ Valsartan 1 tab BID PO 05/19/25 22:00 05/22/25 09:05 1 TAB Carvedilol 3.125 mg Q12HR PO 05/19/25 22:00 05/22/25 09:04 3.125 MG Empaglifozin 10 mg DAILY PO 05/20/25 10:00 05/22/25 09:05 10 MG Aspirin 81 mg DAILY PO 05/20/25 10:00 05/22/25 09:05 81 MG Atorvastatin Calcium 40 mg HS PO 05/19/25 22:00 05/21/25 21:56 40 MG Albuterol 2.5 mg Q4HR NEB 05/20/25 18:00 05/22/25 09:38 2.5 MG Spironolactone 25 mg DAILY PO 05/22/25 10:00 05/22/25 09:05 25 MG Apixaban 10 mg BID PO 05/21/25 22:00 05/28/25 21:59 05/22/25 09:05 10 MG Apixaban 5 mg BID PO 05/29/25 10:00 Laboratory Results Laboratory Tests 05/20/25 09:50 Urinalysis Test 05/18/25 19:20 Urine Color Light-yellow (Yellow) Urine Clarity Clear (Clear) Urine pH 5.0 (5.0-9.0) Urine Specific [place] 1.006 (1.001-1.035) Urine Protein Negative (Negative) Urine Ketones Negative (Negative) Urine Blood Negative /uL (Negative) Urine Nitrite Negative (Negative) Urine Bilirubin Negative (Negative) Urine Urobilinogen Normal mg/dL (Negative) Urine Leukocyte Esterase Negative /uL (Negative) Urine RBC 1 /hpf (0 - 3) Urine Microscopic WBC < 1 /HPF (0-3) Urine Squamous Epithelial Cells None seen /hpf (<5) Urine Bacteria None seen /hpf (None Seen) Urine Glucose Normal mg/dL (Normal) Blood Gas Results Test 05/22/25 09:05 Arterial Blood pH 7.450 (7.350-7.450) FiO2 % 21.0 Labs and/or images reviewed: Labs reviewed by me, Image(s) reviewed by me Assessment/Plan Assessment/Plan Acute hypoxic respiratory failure: Oxygen by nasal cannula New onset congestive heart failure BNP 1236: Lasix echocardiogram 20 percent ejection fraction cardiology consult for Dr. Forde, may be a candidate for ICD if he is free of illicit drugs for three months Nonischemic cardiomyopathy with normal coronaries by left heart catheterization by Dr. Forde 05-21-25 Chronic right PE: On Eliquis Bilateral lower lobe pneumonia: Rocephin azithromycin albuterol Atrovent consult for Elevated D-dimer 1.27 DVT ruled out Hypertension Acute COPD exacerbation Time spent 66 minutes Advanced care planning time 20 minutes Patient is full code Patient qualified for home oxygen Plan discussed with: Patient My Orders Orders - SHALONDA BRAGG MD Procedure Category Date Status Time Abg W/ Co-Ox RT 05/22/25 Logged 04:00 Date of Service: May 22, 2025 Billing Provider: SHALONDA BRAGG MD Common Visit Codes: [id number] CARE 30-74 MIN SHALONDA BRAGG MD May 22, 2025 10:14
--- NOTE | 2025-05-22 14:13 | DVHINCON2 ---
Date of service: May 21, 2025 Referring Physician Matthew Arreaga Reason for Consultation Acute respiratory failure History of Present Illness History Source: Patient Exam Limitations: No limitations HPI Patient is a 69-year old gentleman with a history of substance abuse, hypertension, congestive heart failure, COPD and PE on Eliquis who presented with shortness of breath. Was seen in the emergency room where CTA of the chest was obtained and demonstrated chronic PE and trace bilateral pleural effusions. Patient was admitted for further workup and pulmonology was consulted to assist in management. Past Medical History Cardiac: CHF, HTN Pulmonary: COPD, Pulmonary embolus Central Nervous System: No pertinent Hx GI: No pertinent Hx Hemotology/Oncology: No pertinent Hx Hepatobiliary: No pertinent Hx Psychiatric: No pertinent Hx Musculoskeletal: No pertinent Hx Rheumotologic: No pertinent Hx Infectious Disease: No peritnent Hx ENT: No pertinent Hx Renal/: No pertinent Hx Endocrine: No pertinent Hx Dermatology: No pertinent Hx Past Surgical History: No pertinent Hx Family History: No pertinent Hx Patient Family History: Patient reports no known family medical history. Smoker: No Hx (Negative) Alocohol: None Drugs: None Lives with: With family Domestic Violence: Neg Review of Systems Constitutional: No symptom reported Ears, Nose, & Throat: No symptom reported Eyes: No symptom reported Pulmonary/Respiratory: Dyspnea Cardiovascular: No symptom reported Gastrointestinal: No symptom reported Genitourinary: No symptom reported Musculoskeletal: No symptom reported Skin: No symptom reported Psychiatric: No symptom reported Endocrine: No symptom reported Hemotologic/Lymphatic: No symptom reported H&P Exam Vital Signs Vital Signs Date Time Temp Pulse Resp B/P (MAP) Pulse Ox O2 Delivery O2 Flow Rate FiO2 05/22/25 13:36 78 18 97 05/22/25 13:30 Nasal Cannula* 3 32 05/22/25 13:12 97/62 (74) 05/22/25 13:00 98.5 98.5 General Appeara: Well developed, Well nourished, Normal Appearance Head Exam: Normal inspection Neck Exam: Normal inspection, Non-tender, Normal alignment Eye Exam: bilateral eye Normal inspection, bilateral eye PERRL, bilateral eye EOMI Ear Exam: bilateral ear Auricle normal, bilateral ear Canal normal, bilateral ear TM normal Nasal Exam: Normal inspection Mouth: Normal Inspection Pulmonary/Respiratory: Decreased breath sounds Cardiovascular/Chest: Normal inspection Peripheral Pulses: 4+ Radial (R), 4+ Radial (L), 4+ Brachial (R), 4+ Brachial (L) Labs/Xrays Labs Test 05/22/25 09:05 05/21/25 04:50 05/20/25 22:59 05/20/25 09:50 Range/Units Blood Gas Specimen Type Arterial Blood Gas Sample Site Left radial Blood Gas Patient Temperature 37.0 Arterial Blood Date Drawn [id number] Arterial Blood pH 7.450 7.350-7.450 Arterial Blood Partial Pressure CO2 53.3 H 35.0-48.0 mmHg Arterial Blood Partial Pressure O2 43.0 *L 83.0-108.0 mmHg Arterial Blood HCO3 36.2 H 21.0-28.0 mmol/L Arterial Blood Oxygen Saturation 79.1 *L 94.0-98.0 % Arterial Blood Base Excess 10.1 H -2.0-3.0 mmol/L Arterial Blood Oxyhemoglobin 78.0 L 94.0-98.0 % Arterial Blood Carboxyhemoglobin 1.1 0.5-1.5 % Arterial Blood Methemoglobin 0.3 0.0-1.5 % Roshan Test Yes Blood Gas Total Hemoglobin 15.30 13.5-17.5 g/dL Blood Gas Modality Room air FiO2 % 21.0 Blood Gas Critical Value Read Back Yes Blood Gas Notified Whom justa Arreaga md Blood Gas Notified Time [id number] Blood Gas Notified By Engine Room Operator gilbert brady POC Glucose 101 70-106 mg/dl Troponin I High Sensitivity 40 </=54 ng/L White Blood Count 8.8 4.4-10.8 10^3/uL Red Blood Count 4.89 4.5-5.90 10^6/uL Hemoglobin 15.3 13.5-17.5 g/dL Hematocrit 45.5 41.0-53.0 % Mean Corpuscular Volume 93.0 80.0-100.0 fL Mean Corpuscular Hemoglobin 31.2 28.0-32.0 pg Mean Corpuscular Hemoglobin Concent 33.6 32.0-36.0 g/dL Red Cell Distribution Width 14.5 H 11.8-14.3 % Platelet Count 202 140-450 10^3/uL Mean Platelet Volume 8.5 6.9-10.8 fL Neutrophils (%) (Auto) 84.1 H 37.0-80.0 % Lymphocytes (%) (Auto) 7.7 L 10.0-50.0 % Monocytes (%) (Auto) 7.4 0.0-12.0 % Eosinophils (%) (Auto) 0.4 0.0-7.0 % Basophils (%) (Auto) 0.4 0.0-2.0 % Neutrophils # (Auto) 7.4 1.6-8.6 10 ^3/uL Lymphocytes # (Auto) 0.7 0.4-5.4 10 ^3/uL Monocytes # (Auto) 0.6 0-1.3 10 ^3/uL Eosinophils # (Auto) 0 0-0.8 10 ^3/uL Basophils # (Auto) 0 0-0.2 10 ^3/uL Nucleated Red Blood Cells 0.1 % Prothrombin Time 12.8 H 9.3-11.8 sec Prothrombin Time INR 1.23 H 0.9-1.15 Activated Partial Thromboplast Time 31.1 24.5-34.5 SEC Sodium Level 138 136-145 mmol/L Potassium Level 3.9 3.5-5.1 mmol/L Chloride Level 96 L 98-107 mmol/L Carbon Dioxide Level 35 H 20-31 mmol/L Anion Gap 7 5-15 Blood Urea Nitrogen 15 9-23 mg/dL Creatinine 1.07 0.700-1.30 mg/dL Glomerular Filtration Rate Calc 75 >90 mL/min BUN/Creatinine Ratio 14.0 10.0-20.0 Serum Glucose 122 H 74-106 mg/dL Calcium Level 8.0 L 8.7-10.4 mg/dL Total Bilirubin 0.8 0.2-1.0 mg/dL Aspartate Amino Transferase (AST) 20 13-40 U/L Alanine Aminotransferase (ALT) 15 7-40 U/L Alkaline Phosphatase 91 46-116 U/L Total Protein 5.5 L 5.7-8.2 g/dL Albumin 2.9 L 3.2-4.8 g/dL Test 05/19/25 11:10 05/18/25 19:20 05/18/25 16:55 Range/Units Urine Opiates Screen Neg NEGATIVE Urine Fentanyl Screen Neg NEGATIVE Urine Barbiturates Screen Neg NEGATIVE Urine Phencyclidine Screen Neg NEGATIVE Urine Amphetamines Screen Pos NEGATIVE Urine Benzodiazepines Screen Pos NEGATIVE Urine Cocaine Screen Neg NEGATIVE Urine Cannabinoids Screen Pos NEGATIVE Urine Color Light-yellow Yellow Urine Clarity Clear Clear Urine pH 5.0 5.0-9.0 Urine Specific [place] 1.006 1.001-1.035 Urine Protein Negative Negative Urine Ketones Negative Negative Urine Blood Negative Negative /uL Urine Nitrite Negative Negative Urine Bilirubin Negative Negative Urine Urobilinogen Normal Negative mg/dL Urine Leukocyte Esterase Negative Negative /uL Urine RBC 1 0 - 3 /hpf Urine Microscopic WBC < 1 0-3 /HPF Urine Squamous Epithelial Cells None seen <5 /hpf Urine Bacteria None seen None Seen /hpf Urine Glucose Normal Normal mg/dL D-Dimer, Quantitative 1.27 H 0.0-0.49 mg/L FEU B-Type Natriuretic Peptide 1236.54 0-100 pg/mL Assessment/Plan Plan Impression Acute hypoxemic respiratory failure Substance abuse Pleural effusions Hx of PE COPD Patient seen and examined Events Low oxygen requirements On 2 liters nasal cannula Vital signs stable Labs and imaging reviewed CT of the chest reviewed Nonocclusive filling defect within the distal right main pulmonary artery extending into the lobar branches of the middle and lower lobes adherent to the bowers having an appearance of likely chronic pulmonary embolus. Trace bilateral pleural effusions, not amenable to thoracentesis Diffuse parenchymal architectural changes consistent with advanced paraseptal pulmonary emphysema. Moderate bibasilar atelectasis and minor bilateral lower lobe consolidation. Management Supplemental oxygen Titrate to maintain sats 90% or above Incentive spirometry Antibiotics Bronchodilators Monitor renal function Monitor electrolytes Supplement as needed Continue anticoagulation therapy DVT prophylaxis Plan discussed with: Patient HORTENSIA AZEVEDO MD May 22, 2025 14:13
--- NOTE | 2025-05-22 14:14 | DVHPN2 ---
Progress Note - Dictate Date Seen: May 22, 2025 Has the PT tested + for MRSA If YES, has PT been informed?: No Medical Necessity Reason Pt with a Central, PICC or Fol: Yes The following are medically ne: Asencio Catheter Reason for asencio catheter: Bladder Retention/Obstruc vital signs Vital Sign Date Time Temp Pulse Resp B/P (MAP) Pulse Ox O2 Delivery O2 Flow Rate FiO2 05/22/25 13:36 78 18 97 05/22/25 13:30 Nasal Cannula* 3 32 05/22/25 13:12 97/62 (74) 05/22/25 13:00 98.5 98.5 Total Intake and Output 05/21/25 05/21/25 05/22/25 15:00 23:00 07:00 Intake Total 240 ml 720 ml 620 ml Output Total 1500 ml 950 ml Balance 240 ml -780 ml -330 ml medications Current Medications Medications Dose Ordered Sig/Zahra Route Start Time Stop Time Status Last Admin Dose Admin Furosemide 40 mg DAILY IV 05/19/25 10:00 05/22/25 09:03 40 MG Ondansetron HCl 4 mg Q4HP PRN IV 05/18/25 19:45 Acetaminophen 650 mg Q6HP PRN PO 05/18/25 19:45 Nitroglycerin 0.4 mg Q5MINP PRN SL 05/18/25 19:45 Morphine Sulfate 2 mg Q30M PRN IV 05/18/25 19:45 Ceftriaxone Sodium 50 ml @ 100 mls/hr DAILY@09 IV 05/20/25 09:00 05/22/25 09:01 100 MLS/HR Azithromycin 250 ml @ 125 mls/hr DAILY IV 05/20/25 10:00 Hold 05/20/25 10:11 125 MLS/HR Nicotine 1 patch DAILY TD 05/20/25 10:00 05/22/25 09:04 1 PATCH Sacubitril/ Valsartan 1 tab BID PO 05/19/25 22:00 05/22/25 09:05 1 TAB Carvedilol 3.125 mg Q12HR PO 05/19/25 22:00 05/22/25 09:04 3.125 MG Empaglifozin 10 mg DAILY PO 05/20/25 10:00 05/22/25 09:05 10 MG Aspirin 81 mg DAILY PO 05/20/25 10:00 05/22/25 09:05 81 MG Atorvastatin Calcium 40 mg HS PO 05/19/25 22:00 05/21/25 21:56 40 MG Albuterol 2.5 mg Q4HR NEB 05/20/25 18:00 05/22/25 13:30 2.5 MG Spironolactone 25 mg DAILY PO 05/22/25 10:00 05/22/25 09:05 25 MG Apixaban 10 mg BID PO 05/21/25 22:00 05/28/25 21:59 05/22/25 09:05 10 MG Apixaban 5 mg BID PO 05/29/25 10:00 laboratory and microbiology Laboratory Tests 05/20/25 09:50 Test 05/20/25 09:50 Range/Units Serum Glucose 122 H 74-106 mg/dL Assessment/Plan Impression Acute hypoxemic respiratory failure Substance abuse Pleural effusions Hx of PE COPD Patient seen and examined Events Low oxygen requirements On 2 liters nasal cannula No acute events Labs and imaging reviewed CT of the chest reviewed Nonocclusive filling defect within the distal right main pulmonary artery extending into the lobar branches of the middle and lower lobes adherent to the bowers having an appearance of likely chronic pulmonary embolus. Trace bilateral pleural effusions, not amenable to thoracentesis Diffuse parenchymal architectural changes consistent with advanced paraseptal pulmonary emphysema. Moderate bibasilar atelectasis and minor bilateral lower lobe consolidation. Management Supplemental oxygen Titrate to maintain sats 90% or above Incentive spirometry Continue antibiotics Bronchodilators Monitor renal function Monitor electrolytes Supplement as needed Continue anticoagulation therapy DVT prophylaxis Dietary Evaluation Review Comments: Encourage and monitor PO intakes CCHO-60 Cardiac diet Expected Outcomes/Goals: nutrition related lab value WNL, gradual wt loss Plan discussed with: Patient HORTENSIA AZEVEDO MD May 22, 2025 14:14
[2025-05-22 22:27] LABS: COVID19 ANTIGEN SOFIA FIA NEGATIVE (NEGATIVE)
[2025-05-23] VITALS (19 sets, daily range): BP systolic 91–124; BP diastolic 52–85; PULSE 78–97; RESP 17–24; TEMP 97.3–98.6; O2SAT 90–99
--- NOTE | 2025-05-23 11:07 | DVHPN2 ---
Reviewed: Care Plan, H&P, Labs, Medications, Previous Orders, Radiology Changes from previous H/P or p: No Changes Objective Vitals Vital Signs Date Time Temp Pulse Resp B/P (MAP) Pulse Ox O2 Delivery O2 Flow Rate FiO2 05/23/25 10:30 97 18 98 05/23/25 10:08 113/78 05/23/25 09:00 97.3 97.3 05/23/25 07:34 Nasal Cannula* 4 36 Intake/Output Intake and Output 05/23/25 07:00 Intake Total 1320 ml Output Total 2100 ml Balance -780 ml Intake Oral 1320 ml Output Urine Total 2100 ml Medications Current Medications Medications Dose Ordered Sig/Zahra Route Start Time Stop Time Status Last Admin Dose Admin Furosemide 40 mg DAILY IV 05/19/25 10:00 05/23/25 10:07 40 MG Ondansetron HCl 4 mg Q4HP PRN IV 05/18/25 19:45 Acetaminophen 650 mg Q6HP PRN PO 05/18/25 19:45 Nitroglycerin 0.4 mg Q5MINP PRN SL 05/18/25 19:45 Morphine Sulfate 2 mg Q30M PRN IV 05/18/25 19:45 Ceftriaxone Sodium 50 ml @ 100 mls/hr DAILY@09 IV 05/20/25 09:00 05/23/25 09:00 100 MLS/HR Azithromycin 250 ml @ 125 mls/hr DAILY IV 05/20/25 10:00 Hold 05/20/25 10:11 125 MLS/HR Nicotine 1 patch DAILY TD 05/20/25 10:00 05/23/25 10:08 1 PATCH Sacubitril/ Valsartan 1 tab BID PO 05/19/25 22:00 05/23/25 10:07 1 TAB Carvedilol 3.125 mg Q12HR PO 05/19/25 22:00 05/23/25 10:08 3.125 MG Empaglifozin 10 mg DAILY PO 05/20/25 10:00 05/23/25 10:07 10 MG Aspirin 81 mg DAILY PO 05/20/25 10:00 05/23/25 10:07 81 MG Atorvastatin Calcium 40 mg HS PO 05/19/25 22:00 05/22/25 21:30 40 MG Albuterol 2.5 mg Q4HR NEB 05/20/25 18:00 05/23/25 10:29 2.5 MG Spironolactone 25 mg DAILY PO 05/22/25 10:00 05/23/25 10:07 25 MG Apixaban 10 mg BID PO 05/21/25 22:00 05/28/25 21:59 05/23/25 10:08 10 MG Apixaban 5 mg BID PO 05/29/25 10:00 Laboratory Results Laboratory Tests 05/20/25 09:50 Urinalysis Test 05/18/25 19:20 Urine Color Light-yellow (Yellow) Urine Clarity Clear (Clear) Urine pH 5.0 (5.0-9.0) Urine Specific [place] 1.006 (1.001-1.035) Urine Protein Negative (Negative) Urine Ketones Negative (Negative) Urine Blood Negative /uL (Negative) Urine Nitrite Negative (Negative) Urine Bilirubin Negative (Negative) Urine Urobilinogen Normal mg/dL (Negative) Urine Leukocyte Esterase Negative /uL (Negative) Urine RBC 1 /hpf (0 - 3) Urine Microscopic WBC < 1 /HPF (0-3) Urine Squamous Epithelial Cells None seen /hpf (<5) Urine Bacteria None seen /hpf (None Seen) Urine Glucose Normal mg/dL (Normal) Labs and/or images reviewed: Labs reviewed by me, Image(s) reviewed by me Assessment/Plan Assessment/Plan Acute hypoxic respiratory failure: Oxygen by nasal cannula New onset congestive heart failure BNP 1236: Lasix echocardiogram 20 percent ejection fraction cardiology consult for Dr. Forde, may be a candidate for ICD if he is free of illicit drugs for three months Nonischemic cardiomyopathy with normal coronaries by left heart catheterization by Dr. Forde 05-21-25 Chronic right PE: On Eliquis Bilateral lower lobe pneumonia: Rocephin azithromycin albuterol Atrovent consult for Elevated D-dimer 1.27 DVT ruled out Hypertension Acute COPD exacerbation Time spent 65 minutes Advanced care planning time 20 minutes Patient is full code Patient qualified for home oxygen Plan discussed with: Patient Date of Service: May 23, 2025 Billing Provider: SHALONDA BRAGG MD Common Visit Codes: [id number] INP/OBS CARE(HIGH) SHALONDA BRAGG MD May 23, 2025 11:07
--- NOTE | 2025-05-23 13:34 | DVHPN2 ---
Progress Note - Dictate Date Seen: May 23, 2025 Has the PT tested + for MRSA If YES, has PT been informed?: No Medical Necessity Reason Pt with a Central, PICC or Fol: Yes The following are medically ne: Asencio Catheter Reason for asencio catheter: Bladder Retention/Obstruc vital signs Vital Sign Date Time Temp Pulse Resp B/P (MAP) Pulse Ox O2 Delivery O2 Flow Rate FiO2 05/23/25 10:30 97 18 98 05/23/25 10:08 113/78 05/23/25 09:00 97.3 97.3 05/23/25 07:34 Nasal Cannula* 4 36 Total Intake and Output 05/22/25 05/22/25 05/23/25 15:00 23:00 07:00 Intake Total 480 ml 240 ml 600 ml Output Total 2100 ml Balance 480 ml -1860 ml 600 ml medications Current Medications Medications Dose Ordered Sig/Zahra Route Start Time Stop Time Status Last Admin Dose Admin Furosemide 40 mg DAILY IV 05/19/25 10:00 05/23/25 10:07 40 MG Ondansetron HCl 4 mg Q4HP PRN IV 05/18/25 19:45 Acetaminophen 650 mg Q6HP PRN PO 05/18/25 19:45 Nitroglycerin 0.4 mg Q5MINP PRN SL 05/18/25 19:45 Morphine Sulfate 2 mg Q30M PRN IV 05/18/25 19:45 Ceftriaxone Sodium 50 ml @ 100 mls/hr DAILY@09 IV 05/20/25 09:00 05/23/25 09:00 100 MLS/HR Azithromycin 250 ml @ 125 mls/hr DAILY IV 05/20/25 10:00 Hold 05/20/25 10:11 125 MLS/HR Nicotine 1 patch DAILY TD 05/20/25 10:00 05/23/25 10:08 1 PATCH Sacubitril/ Valsartan 1 tab BID PO 05/19/25 22:00 05/23/25 10:07 1 TAB Carvedilol 3.125 mg Q12HR PO 05/19/25 22:00 05/23/25 10:08 3.125 MG Empaglifozin 10 mg DAILY PO 05/20/25 10:00 05/23/25 10:07 10 MG Aspirin 81 mg DAILY PO 05/20/25 10:00 05/23/25 10:07 81 MG Atorvastatin Calcium 40 mg HS PO 05/19/25 22:00 05/22/25 21:30 40 MG Albuterol 2.5 mg Q4HR NEB 05/20/25 18:00 05/23/25 10:29 2.5 MG Spironolactone 25 mg DAILY PO 05/22/25 10:00 05/23/25 10:07 25 MG Apixaban 10 mg BID PO 05/21/25 22:00 05/28/25 21:59 05/23/25 10:08 10 MG Apixaban 5 mg BID PO 05/29/25 10:00 laboratory and microbiology Laboratory Tests 05/20/25 09:50 Test 05/20/25 09:50 Range/Units Serum Glucose 122 H 74-106 mg/dL Assessment/Plan Impression Acute hypoxemic respiratory failure Substance abuse Pleural effusions Hx of PE COPD Patient seen and examined Events Low oxygen requirements On 2 liters nasal cannula No acute events Labs and imaging reviewed Management Supplemental oxygen Titrate to maintain sats 90% or above Incentive spirometry Continue antibiotics Bronchodilators Monitor renal function Monitor electrolytes Supplement as needed Continue anticoagulation therapy DVT prophylaxis Dietary Evaluation Review Comments: Encourage and monitor PO intakes CCHO-60 Cardiac diet Expected Outcomes/Goals: nutrition related lab value WNL, gradual wt loss Plan discussed with: Other (pt) HORTENSIA AZEVEDO MD May 23, 2025 13:34
--- NOTE | 2025-05-23 18:42 | DVH ---
EXAM: XY CHEST XRAY 1 VIEW HISTORY: SOB, change in pt condition TECHNIQUE: 1 view of the chest COMPARISON: CT CT ANGIO CHEST CONTRAST on DOS: 05/19/25 FINDINGS/IMPRESSION: LUNGS: Small right-sided pleural effusion. Peripheral interstitial edema. Hypoventilatory changes in bilateral lung bases . Mild radiographic worsening. MEDIASTINUM: Mild cardiomegaly BONES: No acute osseous abnormality OTHER: None
[2025-05-23 18:50] LABS: Base Excess 11.1 mmol/L (-2.0-3.0)
[2025-05-23 19:07] LABS: Alanine Aminotransferase 20 U/L (7-40); Alkaline Phosphatase 94 U/L (46-116); Anion Gap 5 (5-15); BUN/Creatinine Ratio 13.1 (10.0-20.0); Bilirubin, Total 0.6 mg/dL (0.2-1.0); Blood Urea Nitrogen 13 mg/dL (9-23); Potassium 4.2 mmol/L (3.5-5.1); Sodium 137 mmol/L (136-145); Total Protein 5.9 g/dL (5.7-8.2)
[2025-05-23 19:11] LABS: Albumin 3.2 g/dL (3.2-4.8); Calcium 8.4 mg/dL (8.7-10.4); Carbon Dioxide 39 mmol/L (20-31); Chloride 93 mmol/L (98-107); Glucose 106 mg/dL (74-106)
[2025-05-24] VITALS (19 sets, daily range): BP systolic 94–122; BP diastolic 62–80; PULSE 72–92; RESP 16–20; TEMP 97.8–99.5; O2SAT 90–100
--- NOTE | 2025-05-24 11:14 | DVHPN2 ---
Reviewed: Care Plan, H&P, Labs, Medications, Previous Orders, Radiology Changes from previous H/P or p: No Changes Objective Vitals Vital Signs Date Time Temp Pulse Resp B/P (MAP) Pulse Ox O2 Delivery O2 Flow Rate FiO2 05/24/25 09:17 94 Nasal Cannula* 3 32 05/24/25 09:00 97.8 75 16 99/64 (76) 97.8 Intake/Output Intake and Output 05/24/25 07:00 Intake Total 1270 ml Output Total 4100 ml Balance -2830 ml Intake Oral 1220 ml IV Total 50 ml Output Urine Total 4100 ml Medications Current Medications Medications Dose Ordered Sig/Zahra Route Start Time Stop Time Status Last Admin Dose Admin Furosemide 40 mg DAILY IV 05/19/25 10:00 05/23/25 10:07 40 MG Ondansetron HCl 4 mg Q4HP PRN IV 05/18/25 19:45 Acetaminophen 650 mg Q6HP PRN PO 05/18/25 19:45 Nitroglycerin 0.4 mg Q5MINP PRN SL 05/18/25 19:45 Morphine Sulfate 2 mg Q30M PRN IV 05/18/25 19:45 Ceftriaxone Sodium 50 ml @ 100 mls/hr DAILY@09 IV 05/20/25 09:00 05/23/25 09:00 100 MLS/HR Azithromycin 250 ml @ 125 mls/hr DAILY IV 05/20/25 10:00 Hold 05/20/25 10:11 125 MLS/HR Nicotine 1 patch DAILY TD 05/20/25 10:00 05/23/25 10:08 1 PATCH Sacubitril/ Valsartan 1 tab BID PO 05/19/25 22:00 05/23/25 21:35 1 TAB Carvedilol 3.125 mg Q12HR PO 05/19/25 22:00 05/23/25 21:35 3.125 MG Empaglifozin 10 mg DAILY PO 05/20/25 10:00 05/23/25 10:07 10 MG Aspirin 81 mg DAILY PO 05/20/25 10:00 05/23/25 10:07 81 MG Atorvastatin Calcium 40 mg HS PO 05/19/25 22:00 05/23/25 21:34 40 MG Albuterol 2.5 mg Q4HR NEB 05/20/25 18:00 05/24/25 06:55 2.5 MG Spironolactone 25 mg DAILY PO 05/22/25 10:00 05/23/25 10:07 25 MG Apixaban 10 mg BID PO 05/21/25 22:00 05/28/25 21:59 05/23/25 21:35 10 MG Apixaban 5 mg BID PO 05/29/25 10:00 Laboratory Results Laboratory Tests 05/20/25 09:50 05/23/25 18:29 Chemistry Test 05/23/25 18:29 Albumin 3.2 g/dL (3.2-4.8) Calcium Level 8.4 mg/dL (8.7-10.4) L Total Protein 5.9 g/dL (5.7-8.2) LFT Test 05/23/25 18:29 Alanine Aminotransferase (ALT) 20 U/L (7-40) Alkaline Phosphatase 94 U/L (46-116) Aspartate Amino Transferase (AST) 34 U/L (13-40) Total Bilirubin 0.6 mg/dL (0.2-1.0) Urinalysis Test 05/18/25 19:20 Urine Color Light-yellow (Yellow) Urine Clarity Clear (Clear) Urine pH 5.0 (5.0-9.0) Urine Specific [place] 1.006 (1.001-1.035) Urine Protein Negative (Negative) Urine Ketones Negative (Negative) Urine Blood Negative /uL (Negative) Urine Nitrite Negative (Negative) Urine Bilirubin Negative (Negative) Urine Urobilinogen Normal mg/dL (Negative) Urine Leukocyte Esterase Negative /uL (Negative) Urine RBC 1 /hpf (0 - 3) Urine Microscopic WBC < 1 /HPF (0-3) Urine Squamous Epithelial Cells None seen /hpf (<5) Urine Bacteria None seen /hpf (None Seen) Urine Glucose Normal mg/dL (Normal) Blood Gas Results Test 05/23/25 18:43 Arterial Blood pH 7.441 (7.350-7.450) FiO2 % 40.0 Labs and/or images reviewed: Labs reviewed by me, Image(s) reviewed by me Assessment/Plan Assessment/Plan Acute hypoxic respiratory failure: Oxygen by nasal cannula New onset congestive heart failure BNP 1236: Lasix echocardiogram 20 percent ejection fraction cardiology consult for Dr. Forde, may be a candidate for ICD if he is free of illicit drugs for three months Nonischemic cardiomyopathy with normal coronaries by left heart catheterization by Dr. Forde 05-21-25 Chronic right PE: On Eliquis Bilateral lower lobe pneumonia: Rocephin azithromycin albuterol Atrovent consult for Elevated D-dimer 1.27 DVT ruled out Hypertension Acute COPD exacerbation Time spent 65 minutes Advanced care planning time 20 minutes Patient is full code Patient qualified for home oxygen Physical therapy ordered Plan discussed with: Patient Date of Service: May 24, 2025 Billing Provider: SHALONDA BRAGG MD Common Visit Codes: [id number] INP/OBS CARE(HIGH) SHALONDA BRAGG MD May 24, 2025 11:14
--- NOTE | 2025-05-24 14:53 | DVHPN2 ---
Progress Note - Dictate Date Seen: May 24, 2025 Has the PT tested + for MRSA If YES, has PT been informed?: No Medical Necessity Reason Pt with a Central, PICC or Fol: Yes The following are medically ne: Asencio Catheter Reason for asencio catheter: Bladder Retention/Obstruc vital signs Vital Sign Date Time Temp Pulse Resp B/P (MAP) Pulse Ox O2 Delivery O2 Flow Rate FiO2 05/24/25 14:19 95 Nasal Cannula* 4 36 05/24/25 12:53 98.1 82 20 98/72 (81) 98.1 Total Intake and Output 05/23/25 05/23/25 05/24/25 15:00 23:00 07:00 Intake Total 50 ml 620 ml 600 ml Output Total 3000 ml 1100 ml Balance 50 ml -2380 ml -500 ml medications Current Medications Medications Dose Ordered Sig/Zahra Route Start Time Stop Time Status Last Admin Dose Admin Furosemide 40 mg DAILY IV 05/19/25 10:00 05/24/25 10:59 40 MG Ondansetron HCl 4 mg Q4HP PRN IV 05/18/25 19:45 Acetaminophen 650 mg Q6HP PRN PO 05/18/25 19:45 Nitroglycerin 0.4 mg Q5MINP PRN SL 05/18/25 19:45 Morphine Sulfate 2 mg Q30M PRN IV 05/18/25 19:45 Ceftriaxone Sodium 50 ml @ 100 mls/hr DAILY@09 IV 05/20/25 09:00 05/24/25 11:06 100 MLS/HR Azithromycin 250 ml @ 125 mls/hr DAILY IV 05/20/25 10:00 Hold 05/20/25 10:11 125 MLS/HR Nicotine 1 patch DAILY TD 05/20/25 10:00 05/24/25 11:20 1 PATCH Sacubitril/ Valsartan 1 tab BID PO 05/19/25 22:00 05/23/25 21:35 1 TAB Carvedilol 3.125 mg Q12HR PO 05/19/25 22:00 05/23/25 21:35 3.125 MG Empaglifozin 10 mg DAILY PO 05/20/25 10:00 05/24/25 10:57 10 MG Aspirin 81 mg DAILY PO 05/20/25 10:00 Hold 05/24/25 10:57 81 MG Atorvastatin Calcium 40 mg HS PO 05/19/25 22:00 05/23/25 21:34 40 MG Albuterol 2.5 mg Q4HR NEB 05/20/25 18:00 05/24/25 06:55 2.5 MG Spironolactone 25 mg DAILY PO 05/22/25 10:00 05/24/25 10:58 25 MG Apixaban 10 mg BID PO 05/21/25 22:00 05/28/25 21:59 Hold 05/24/25 10:58 10 MG Apixaban 5 mg BID PO 05/29/25 10:00 Future Hold laboratory and microbiology Laboratory Tests 05/23/25 18:29 05/20/25 09:50 Test 05/23/25 18:29 Range/Units Serum Glucose 106 74-106 mg/dL Assessment/Plan Impression Acute hypoxemic respiratory failure Substance abuse Pleural effusions Hx of PE COPD Patient seen and examined Events Low oxygen requirements On 4 liters nasal cannula No distress Labs and imaging reviewed Management Supplemental oxygen Titrate to maintain sats 90% or above Incentive spirometry Prn bipap Continue antibiotics Bronchodilators Monitor renal function Monitor electrolytes Supplement as needed Continue anticoagulation therapy DVT prophylaxis Dietary Evaluation Review Comments: Encourage and monitor PO intakes CCHO-60 Cardiac diet Expected Outcomes/Goals: nutrition related lab value WNL, gradual wt loss Plan discussed with: Patient HORTENSIA AZEVEDO MD May 24, 2025 14:53
[2025-05-25] VITALS (16 sets, daily range): BP systolic 103–125; BP diastolic 65–77; PULSE 71–83; RESP 16–22; TEMP 97.6–98.9; O2SAT 92–99
--- NOTE | 2025-05-25 11:58 | DVHPN2 ---
Reviewed: Care Plan, H&P, Labs, Medications, Previous Orders, Radiology Changes from previous H/P or p: No Changes Objective Vitals Vital Signs Date Time Temp Pulse Resp B/P (MAP) Pulse Ox O2 Delivery O2 Flow Rate FiO2 05/25/25 10:11 80 20 96 05/25/25 10:00 Nasal Cannula* 4 36 05/25/25 08:46 98.8 125/77 (93) 98.8 Intake/Output Intake and Output 05/25/25 07:00 Intake Total 1480 ml Output Total 2700 ml Balance -1220 ml Intake Oral 1430 ml IV Total 50 ml Output Urine Total 2700 ml Medications Current Medications Medications Dose Ordered Sig/Zahra Route Start Time Stop Time Status Last Admin Dose Admin Furosemide 40 mg DAILY IV 05/19/25 10:00 05/25/25 08:25 40 MG Ondansetron HCl 4 mg Q4HP PRN IV 05/18/25 19:45 Acetaminophen 650 mg Q6HP PRN PO 05/18/25 19:45 Nitroglycerin 0.4 mg Q5MINP PRN SL 05/18/25 19:45 Morphine Sulfate 2 mg Q30M PRN IV 05/18/25 19:45 Ceftriaxone Sodium 50 ml @ 100 mls/hr DAILY@09 IV 05/20/25 09:00 05/25/25 08:18 100 MLS/HR Azithromycin 250 ml @ 125 mls/hr DAILY IV 05/20/25 10:00 Hold 05/20/25 10:11 125 MLS/HR Nicotine 1 patch DAILY TD 05/20/25 10:00 05/25/25 08:31 1 PATCH Sacubitril/ Valsartan 1 tab BID PO 05/19/25 22:00 05/25/25 08:29 1 TAB Carvedilol 3.125 mg Q12HR PO 05/19/25 22:00 05/25/25 08:28 3.125 MG Empaglifozin 10 mg DAILY PO 05/20/25 10:00 05/25/25 08:29 10 MG Aspirin 81 mg DAILY PO 05/20/25 10:00 Hold 05/24/25 10:57 81 MG Atorvastatin Calcium 40 mg HS PO 05/19/25 22:00 05/24/25 21:07 40 MG Albuterol 2.5 mg Q4HR NEB 05/20/25 18:00 05/25/25 10:12 2.5 MG Spironolactone 25 mg DAILY PO 05/22/25 10:00 05/25/25 08:29 25 MG Apixaban 10 mg BID PO 05/21/25 22:00 05/28/25 21:59 Hold 05/24/25 10:58 10 MG Apixaban 5 mg BID PO 05/29/25 10:00 Future Hold Laboratory Results Laboratory Tests 05/20/25 09:50 05/23/25 18:29 Urinalysis Test 05/18/25 19:20 Urine Color Light-yellow (Yellow) Urine Clarity Clear (Clear) Urine pH 5.0 (5.0-9.0) Urine Specific [place] 1.006 (1.001-1.035) Urine Protein Negative (Negative) Urine Ketones Negative (Negative) Urine Blood Negative /uL (Negative) Urine Nitrite Negative (Negative) Urine Bilirubin Negative (Negative) Urine Urobilinogen Normal mg/dL (Negative) Urine Leukocyte Esterase Negative /uL (Negative) Urine RBC 1 /hpf (0 - 3) Urine Microscopic WBC < 1 /HPF (0-3) Urine Squamous Epithelial Cells None seen /hpf (<5) Urine Bacteria None seen /hpf (None Seen) Urine Glucose Normal mg/dL (Normal) Labs and/or images reviewed: Labs reviewed by me, Image(s) reviewed by me Assessment/Plan Assessment/Plan Acute hypoxic respiratory failure: Oxygen by nasal cannula New onset congestive heart failure BNP 1236: Lasix echocardiogram 20 percent ejection fraction cardiology consult for Dr. Forde, may be a candidate for ICD if he is free of illicit drugs for three months Nonischemic cardiomyopathy with normal coronaries by left heart catheterization by Dr. Forde 05-21-25 Chronic right PE: On Eliquis Bilateral lower lobe pneumonia: Rocephin azithromycin albuterol Atrovent consult for Elevated D-dimer 1.27 DVT ruled out Hypertension Acute COPD exacerbation Time spent 55 minutes Advanced care planning time 20 minutes Patient is full code Patient qualified for home oxygen Physical therapy ordered Patient's daughter at Bedside insisting patient to be discharged home Plan discussed with: Patient My Orders Orders - SHALONDA BRAGG MD Procedure Category Date Status Time Communication Order ORDERS 05/24/25 Transmitted 11:56 Date of Service: May 25, 2025 Billing Provider: SHALONDA BRAGG MD Common Visit Codes: [id number] INP/OBS CARE(HIGH) SHALONDA BRAGG MD May 25, 2025 11:58
--- NOTE | 2025-05-25 12:04 | DVHDS2 ---
Discharge Summary Date of Admission May 18, 2025 at 19:41 Date of Discharge: May 25, 2025 Admitting Diagnosis Shortness of breath Wounds: None Labs/Diagnostic Data: Laboratory Results Test 05/23/25 18:43 05/23/25 18:29 05/22/25 20:30 05/22/25 09:05 Blood Gas Specimen Type Arterial Blood Gas Sample Site Right radial Blood Gas Patient Temperature 37.0 Arterial Blood Date Drawn [id number] Arterial Blood pH 7.441 (7.350-7.450) Arterial Blood Partial Pressure CO2 56.8 mmHg (35.0-48.0) Arterial Blood Partial Pressure O2 64.5 mmHg (83.0-108.0) Arterial Blood HCO3 37.8 mmol/L (21.0-28.0) Arterial Blood Oxygen Saturation 92.4 % (94.0-98.0) Arterial Blood Base Excess 11.1 mmol/L (-2.0-3.0) Arterial Blood Oxyhemoglobin 91.1 % (94.0-98.0) Arterial Blood Carboxyhemoglobin 1.0 % (0.5-1.5) Arterial Blood Methemoglobin 0.4 % (0.0-1.5) Roshan Test Yes Blood Gas Total Hemoglobin 15.90 g/dL (13.5-17.5) Blood Gas Liter Flow 4.00 Blood Gas Modality Nasal cannula FiO2 % 40.0 Sodium Level 137 mmol/L (136-145) Potassium Level 4.2 mmol/L (3.5-5.1) Chloride Level 93 mmol/L (98-107) Carbon Dioxide Level 39 mmol/L (20-31) Anion Gap 5 (5-15) Blood Urea Nitrogen 13 mg/dL (9-23) Creatinine 0.99 mg/dL (0.700-1.30) Glomerular Filtration Rate Calc 82 mL/min (>90) BUN/Creatinine Ratio 13.1 (10.0-20.0) Serum Glucose 106 mg/dL (74-106) Calcium Level 8.4 mg/dL (8.7-10.4) Total Bilirubin 0.6 mg/dL (0.2-1.0) Aspartate Amino Transferase (AST) 34 U/L (13-40) Alanine Aminotransferase (ALT) 20 U/L (7-40) Alkaline Phosphatase 94 U/L (46-116) Total Protein 5.9 g/dL (5.7-8.2) Albumin 3.2 g/dL (3.2-4.8) Influenza Type A Antigen Negative (Negative) Influenza Type B Antigen Negative (Negative) SARS-CoV-2 Antigen (Rapid) Negative (NEGATIVE) Blood Gas Critical Value Read Back Yes Blood Gas Notified Whom justa Bragg md Blood Gas Notified Time [id number] Blood Gas Notified By Manager [employer] gilbert brady Test 05/21/25 04:50 05/20/25 22:59 05/20/25 09:50 05/19/25 11:10 POC Glucose 101 mg/dl (70-106) Troponin I High Sensitivity 40 ng/L (</=54) White Blood Count 8.8 10^3/uL (4.4-10.8) Red Blood Count 4.89 10^6/uL (4.5-5.90) Hemoglobin 15.3 g/dL (13.5-17.5) Hematocrit 45.5 % (41.0-53.0) Mean Corpuscular Volume 93.0 fL (80.0-100.0) Mean Corpuscular Hemoglobin 31.2 pg (28.0-32.0) Mean Corpuscular Hemoglobin Concent 33.6 g/dL (32.0-36.0) Red Cell Distribution Width 14.5 % (11.8-14.3) Platelet Count 202 10^3/uL (140-450) Mean Platelet Volume 8.5 fL (6.9-10.8) Neutrophils (%) (Auto) 84.1 % (37.0-80.0) Lymphocytes (%) (Auto) 7.7 % (10.0-50.0) Monocytes (%) (Auto) 7.4 % (0.0-12.0) Eosinophils (%) (Auto) 0.4 % (0.0-7.0) Basophils (%) (Auto) 0.4 % (0.0-2.0) Neutrophils # (Auto) 7.4 10 ^3/uL (1.6-8.6) Lymphocytes # (Auto) 0.7 10 ^3/uL (0.4-5.4) Monocytes # (Auto) 0.6 10 ^3/uL (0-1.3) Eosinophils # (Auto) 0 10 ^3/uL (0-0.8) Basophils # (Auto) 0 10 ^3/uL (0-0.2) Nucleated Red Blood Cells 0.1 % Prothrombin Time 12.8 sec (9.3-11.8) Prothrombin Time INR 1.23 (0.9-1.15) Activated Partial Thromboplast Time 31.1 SEC (24.5-34.5) Urine Opiates Screen Neg (NEGATIVE) Urine Fentanyl Screen Neg (NEGATIVE) Urine Barbiturates Screen Neg (NEGATIVE) Urine Phencyclidine Screen Neg (NEGATIVE) Urine Amphetamines Screen Pos (NEGATIVE) Urine Benzodiazepines Screen Pos (NEGATIVE) Urine Cocaine Screen Neg (NEGATIVE) Urine Cannabinoids Screen Pos (NEGATIVE) Test 05/18/25 19:20 05/18/25 16:55 Urine Color Light-yellow (Yellow) Urine Clarity Clear (Clear) Urine pH 5.0 (5.0-9.0) Urine Specific [place] 1.006 (1.001-1.035) Urine Protein Negative (Negative) Urine Ketones Negative (Negative) Urine Blood Negative /uL (Negative) Urine Nitrite Negative (Negative) Urine Bilirubin Negative (Negative) Urine Urobilinogen Normal mg/dL (Negative) Urine Leukocyte Esterase Negative /uL (Negative) Urine RBC 1 /hpf (0 - 3) Urine Microscopic WBC < 1 /HPF (0-3) Urine Squamous Epithelial Cells None seen /hpf (<5) Urine Bacteria None seen /hpf (None Seen) Urine Glucose Normal mg/dL (Normal) D-Dimer, Quantitative 1.27 mg/L FEU (0.0-0.49) B-Type Natriuretic Peptide 1236.54 pg/mL (0-100) Other Laboratory Tests 05/23/25 18:29 05/20/25 09:50 Brief Hx & Hospital Course: 69-year-old male with a history of hypertension COPD chronic drug abuse came in for shortness of breaths. Found to have community-acquired right lower lobe pneumonia treated with Rocephin azithromycin albuterol Atrovent. Pulmonary consult for Dr. Amanda. COPD was treated appropriately with the med neb treatment. Patient has new onset congestive heart failure with the BNP 1 236. Echocardiogram showed 20 percent ejection fraction he may be candidate for ICD feels free of illicit drugs for three months per cardiology Dr. Forde. D-dimer elevated 1.27 DVT ruled out. Patient on 3 L of oxygen and he qualifies for home oxygen. The daughter is insisting patient to be discharged home today. Discharged. Medications transmitted to the pharmacy Consults/Reason for consult Cardiology Dr. Forde Pulmonology Dr. Valdivia Operations or Procedures Echocardiogram Condition at Discharge: Fair Final Diagnosis/Problems List Acute hypoxic respiratory failure: Oxygen by nasal cannula New onset congestive heart failure BNP 1236: Lasix echocardiogram 20 percent ejection fraction cardiology consult for Dr. Forde, may be a candidate for ICD if he is free of illicit drugs for three months Nonischemic cardiomyopathy with normal coronaries by left heart catheterization by Dr. Forde 05-21-25 Chronic right PE: On Eliquis Bilateral lower lobe pneumonia: Rocephin azithromycin albuterol Atrovent consult for Elevated D-dimer 1.27 DVT ruled out Hypertension Acute COPD exacerbation Discharge Disposition: Home Discharge Instruct/Medications Diet: Cardiac 2g Na,low cholest Activity: Light activity Follow Up/Referral: Follow up with the dietetics director Dr. Forde in two weeks Follow up with the pulmonology Dr. Amanda in two weeks Resume all your Previous home medications Medications: Transmitted to the pharmacy 35 (Time taken for discharge summary 35 minutes) Discharge Statement: "Patient was advised to return to the ER or call 911 if any headaches, dizziness, shortness of breath, chest pain, abdominal pain, bleeding, fevers, or worsening of medical condition. Patient was counseled about treatment plan, medications, possible side effects, patientverbalized understanding. All questions were answered to the best of my ability. This discharge took greater then 30 minutes in planning, reviewing documentation, counseling the patient, and discussing with other team members." ASSESSMENT ASSESSMENT Hospital Course Improved Assessment Acute hypoxic respiratory failure: Oxygen by nasal cannula New onset congestive heart failure BNP 1236: Lasix echocardiogram 20 percent ejection fraction cardiology consult for Dr. Forde, may be a candidate for ICD if he is free of illicit drugs for three months Nonischemic cardiomyopathy with normal coronaries by left heart catheterization by Dr. Forde 05-21-25 Chronic right PE: On Eliquis Bilateral lower lobe pneumonia: Rocephin azithromycin albuterol Atrovent consult for Elevated D-dimer 1.27 DVT ruled out Hypertension Acute COPD exacerbation Date of Service: May 25, 2025 Billing Provider: SHALONDA BRAGG MD Common Visit Codes: [id number] DISCH DAY >30min SHALONDA BRAGG MD May 25, 2025 12:04
--- NOTE | 2025-05-25 14:31 | DVHPN2 ---
Progress Note - Dictate Date Seen: May 25, 2025 Has the PT tested + for MRSA If YES, has PT been informed?: No Medical Necessity Reason Pt with a Central, PICC or Fol: Yes The following are medically ne: Asencio Catheter Reason for asencio catheter: Bladder Retention/Obstruc vital signs Vital Sign Date Time Temp Pulse Resp B/P (MAP) Pulse Ox O2 Delivery O2 Flow Rate FiO2 05/25/25 14:15 81 20 98 05/25/25 13:00 98.0 108/69 (82) 98.0 05/25/25 10:00 Nasal Cannula* 4 36 Total Intake and Output 05/24/25 05/24/25 05/25/25 15:00 23:00 07:00 Intake Total 330 ml 650 ml 500 ml Output Total 1500 ml 1200 ml Balance 330 ml -850 ml -700 ml medications Current Medications Medications Dose Ordered Sig/Zahra Route Start Time Stop Time Status Last Admin Dose Admin Furosemide 40 mg DAILY IV 05/19/25 10:00 05/25/25 08:25 40 MG Ondansetron HCl 4 mg Q4HP PRN IV 05/18/25 19:45 Acetaminophen 650 mg Q6HP PRN PO 05/18/25 19:45 Nitroglycerin 0.4 mg Q5MINP PRN SL 05/18/25 19:45 Morphine Sulfate 2 mg Q30M PRN IV 05/18/25 19:45 Ceftriaxone Sodium 50 ml @ 100 mls/hr DAILY@09 IV 05/20/25 09:00 05/25/25 08:18 100 MLS/HR Azithromycin 250 ml @ 125 mls/hr DAILY IV 05/20/25 10:00 Hold 05/20/25 10:11 125 MLS/HR Nicotine 1 patch DAILY TD 05/20/25 10:00 05/25/25 08:31 1 PATCH Sacubitril/ Valsartan 1 tab BID PO 05/19/25 22:00 05/25/25 08:29 1 TAB Carvedilol 3.125 mg Q12HR PO 05/19/25 22:00 05/25/25 08:28 3.125 MG Empaglifozin 10 mg DAILY PO 05/20/25 10:00 05/25/25 08:29 10 MG Aspirin 81 mg DAILY PO 05/20/25 10:00 Hold 05/24/25 10:57 81 MG Atorvastatin Calcium 40 mg HS PO 05/19/25 22:00 05/24/25 21:07 40 MG Albuterol 2.5 mg Q4HR NEB 05/20/25 18:00 05/25/25 14:05 2.5 MG Spironolactone 25 mg DAILY PO 05/22/25 10:00 05/25/25 08:29 25 MG Apixaban 10 mg BID PO 05/21/25 22:00 05/28/25 21:59 Hold 05/24/25 10:58 10 MG Apixaban 5 mg BID PO 05/29/25 10:00 Future Hold laboratory and microbiology Laboratory Tests 05/23/25 18:29 05/20/25 09:50 Test 05/23/25 18:29 Range/Units Serum Glucose 106 74-106 mg/dL Assessment/Plan Impression Acute hypoxemic respiratory failure Substance abuse Pleural effusions Hx of PE COPD Patient seen and examined Events Low oxygen requirements On 4 liters nasal cannula No distress Labs and imaging reviewed Management Supplemental oxygen Titrate to maintain sats 90% or above Incentive spirometry Prn bipap Continue antibiotics Bronchodilators Monitor renal function Monitor electrolytes Supplement as needed Continue anticoagulation therapy DVT prophylaxis Dietary Evaluation Review Comments: Encourage and monitor PO intakes CCHO-60 Cardiac diet Expected Outcomes/Goals: nutrition related lab value WNL, gradual wt loss Plan discussed with: Patient HORTENSIA AZEVEDO MD May 25, 2025 14:31
[2025-05-25] MEDS ORDERED: APIX5TAB PO (14:34)
[2025-05-25] MEDS ORDERED: FURO1TAB31 PO (14:34)
[2025-05-25] MEDS ORDERED: ATOR-507 PO (14:34)
[2025-05-25] MEDS ORDERED: SPIR25TA PO (14:34)
[2025-05-25] MEDS ORDERED: CARV-214 PO (14:34)
[2025-05-25] MEDS ORDERED: EMPA1TAB PO (14:34)
[2025-05-25] MEDS ORDERED: SACU1TAB PO (14:34)
[2025-05-29] MEDS ORDERED: APIXABAN 5 MG TAB PO SCH (10:00)
== END 2025-05-25 20:12 | disposition home or self-care (01) | DRG 286 ==
LOC: ER 16:05 → OVERFLOW 19:41 → TELE-WESTW 21:39
PROVIDERS: ADMIT Family Medicine; ATTEND Family Medicine
PROC: 4A023N7 Measurement of Cardiac Sampling and Pressure, Left Heart, Percutaneous Approach (ICD-10-PCS; principal; 2025-05-20)
PROC: B211YZZ Fluoroscopy of Multiple Coronary Arteries using Other Contrast (ICD-10-PCS; 2025-05-20)
PROC: B215YZZ Fluoroscopy of Left Heart using Other Contrast (ICD-10-PCS; 2025-05-20)
DX: I11.0 Hypertensive heart disease with heart failure (principal); I50.23 Acute on chronic systolic (congestive) heart failure; J18.9 Pneumonia, unspecified organism; J96.01 Acute respiratory failure with hypoxia; J44.1 Chronic obstructive pulmonary disease with (acute) exacerbation; I27.82 Chronic pulmonary embolism; I31.39 Other pericardial effusion (noninflammatory); J44.0 Chronic obstructive pulmonary disease with (acute) lower respiratory infection; I42.8 Other cardiomyopathies; I42.0 Dilated cardiomyopathy; E66.9 Obesity, unspecified; K74.60 Unspecified cirrhosis of liver; Z68.31 Body mass index [BMI] 31.0-31.9, adult; Z79.01 Long term (current) use of anticoagulants; Z79.899 Other long term (current) drug therapy
CPT/HCPCS: 36415; 36600; 71045; 71275; 80048; 80053; 80307; 81001; 82805; 82962; 83880; 84484; 85025; 85379; 85610; 85730; 86850; 86900; 86901; 87426; 87804; 93005; 93306; 93458; 93970; 94640; 96365; 96375; 97163; 99152; 99291; 99292; G0378; J2250; Q9967